=== PATIENT | male | born 1950 ===

== ENCOUNTER 2017-09-20 11:30 | Emergency (ER) | payer MEDICARE, OTHER ==
[~2017-09-20] VITALS: Ht 182.9 cm; Wt 78.0 kg
[2017-09-20 11:07] LABS: PCO2 Arterial 38.7 mmHg (35-45); PO2 Arterial 52.4 mmHg (80-100)
[~2017-09-20 11:30] MED LIST: ? HTN MED; ALBU90OI INH; AMLO10 PO; AMLO5 PO; ASPI325 PO; ASPI325EC PO; ASPI81CH PO; BP MED; BROM2.5 PO; CEPH500 PO; CRUTCH2 USE; CYCL10 PO; DILT180ER PO; DOXY100 PO; HYDPAM25 PO; IBUP600 PO; LIDO5TP TOP; LISI5 PO; LORA1 PO; LORA2 PO; LOVA40; MELO7.5 PO; METO50ER PO; NAPR500 PO; NITR.4SL SL; Neurontin 300300 MG PO; Norco 5-325 Ta1 EACH PO; OXYACE5T PO; Pepcid40 MG PO; Prednisone20 MG PO; THIA100 PO; TIOT18 INH; TRAM50 PO; TRAZ50 PO; Zithromax250 MG PO; Zofran4 MG PO
[2017-09-20 11:54] LABS: BASOPHILS ABSOLUTE AUTO 0.03 K/mm3 (0.00-0.23); BASOPHILS PERCENT AUTO 0 % (0-2); EOSINOPHILS ABSOLUTE AUTO 0.04 K/mm3 (0.00-0.68); EOSINOPHILS PERCENT AUTO 1 % (0-6); Hematocrit 33.4 % (37.0-53.0); Hemoglobin 11.2 g/dL (13.5-17.5); IMMATURE GRAN ABSOLUTE AUTO 0.03 K/mm3 (0.00-0.10); IMMATURE GRAN PERCENT AUTO 0 % (0-1); LYMPHOCYTES ABSOLUTE AUTO 1.43 K/mm3 (0.84-5.20); LYMPHOCYTES PERCENT AUTO 19 % (21-46); MONOCYTES ABSOLUTE AUTO 0.97 K/mm3 (0.16-1.47); MONOCYTES PERCENT AUTO 13 % (4-13); Mean Corpuscular HGB 28.8 pg (26.0-34.0); Mean Corpuscular HGB Conc 33.5 g/dL (31.5-36.5); Mean Corpuscular Volume 86 fL (80-100); Mean Platelet Volume 8.4 fL (9.1-12.4); NEUTROPHILS PERCENT AUTO 67 % (41-73); Platelet Count 271 K/mm3 (150-400); RDW Coefficient Variation 13.9 % (11.7-14.2); RDW Standard Deviation 43.5 fL (35.1-46.3); Red Blood Cell Count 3.89 M/mm3 (4.30-5.90)
[2017-09-20 12:13] LABS: Troponin I <0.015 ng/mL (0.000-0.040)
[2017-09-20 12:16] LABS: Alanine Aminotransfer (ALT/SGP 20 U/L (12-78); Albumin, Blood 3.5 g/dL (3.4-5.0); Albumin/Globulin Ratio 0.9 (0.8-1.8); Alk Phos 121 U/L (50-136); Anion Gap 10 mmol/L (6-16); Aspartate Aminotrans (AST/SGOT 23 U/L (12-37); Bilirubin, Total 0.4 mg/dL (0.1-1.0); Blood Urea Nitrogen 13 mg/dL (8-24); Bun/Creatinine Ratio 16.9 (12.0-20.0); CO2, Blood 34 mmol/L (21-32); Calcium, Blood 8.6 mg/dL (8.5-10.1); Chloride, Blood 86 mmol/L (98-108); Creatinine, Blood 0.77 mg/dL (0.60-1.20); Glomerular Filtration Rate >60 (60-); Glucose, Blood 100 mg/dL (70-99); Potassium, Blood 2.4 mmol/L (3.5-5.5); Sodium, Blood 130 mmol/L (136-145); Total Protein, Blood 7.5 g/dL (6.4-8.2)
[2017-09-20] MEDS ORDERED: Diclofenac Sod100 MG PO (12:51)
== END 2017-09-20 15:51 | disposition home or self-care (01) ==
LOC: ER 11:30
PROVIDERS: Emergency Medicine; Nurse Practitioner Family
DX: R07.9 Chest pain, unspecified (principal); Z88.5 Allergy status to narcotic agent; Z79.899 Other long term (current) drug therapy; Z79.82 Long term (current) use of aspirin; I10 Essential (primary) hypertension; F17.210 Nicotine dependence, cigarettes, uncomplicated
CPT/HCPCS: 36415; 36600; 71045; 71260; 80053; 82803; 83690; 83880; 84484; 85025; 85379; 93005; 93010; 94375; 96361; 96374; 96375; 99284; J1885; J2405; J7030; Q9967

== ENCOUNTER 2019-06-14 15:59 | Emergency (ER) | payer MEDICARE, OTHER ==
[~2019-06-14] VITALS: Ht 185.4 cm; Wt 78.0 kg
[~2019-06-14 15:59] MED LIST changes: +Diclofenac Sod100 MG PO
== END 2019-06-14 18:53 | disposition home or self-care (01) ==
LOC: ER 15:59
DX: S06.9X1A Unspecified intracranial injury with loss of consciousness of 30 minutes or less, initial encounter (principal); S42.002A Fracture of unspecified part of left clavicle, initial encounter for closed fracture; S01.81XA Laceration without foreign body of other part of head, initial encounter; I10 Essential (primary) hypertension; F17.210 Nicotine dependence, cigarettes, uncomplicated; W18.30XA Fall on same level, unspecified, initial encounter
CPT/HCPCS: 12013; 70450; 72125; 73030; 82947; 99284-25; L0160

== ENCOUNTER → 2019-07-29 | Outpatient (CLI) | payer MEDICARE, OTHER ==
[2019-07-29 18:25] LABS: BASOPHILS ABSOLUTE AUTO 0.04 K/mm3 (0.00-0.23); BASOPHILS PERCENT AUTO 1 % (0-2); EOSINOPHILS ABSOLUTE AUTO 0.09 K/mm3 (0.00-0.68); EOSINOPHILS PERCENT AUTO 1 % (0-6); Hemoglobin 15.7 g/dL (13.5-17.5); IMMATURE GRAN ABSOLUTE AUTO 0.02 K/mm3 (0.00-0.10); IMMATURE GRAN PERCENT AUTO 0 % (0-1); LYMPHOCYTES ABSOLUTE AUTO 1.14 K/mm3 (0.84-5.20); LYMPHOCYTES PERCENT AUTO 17 % (21-46); MONOCYTES ABSOLUTE AUTO 0.46 K/mm3 (0.16-1.47); MONOCYTES PERCENT AUTO 7 % (4-13); Mean Corpuscular HGB 29.7 pg (26.0-34.0); Mean Corpuscular HGB Conc 32.7 g/dL (31.5-36.5); Mean Corpuscular Volume 91 fL (80-100); Mean Platelet Volume 10.1 fL (9.1-12.4); NEUTROPHILS ABSOLUTE AUTO 5.02 K/mm3 (1.96-9.15); NEUTROPHILS PERCENT AUTO 74 % (41-73); Platelet Count 331 K/mm3 (150-400); RDW Coefficient Variation 12.5 % (11.7-14.2); RDW Standard Deviation 41.4 fL (35.1-46.3); Red Blood Cell Count 5.29 M/mm3 (4.30-5.90); White Blood Cell Count 6.77 K/mm3 (4.00-11.30)
[2019-07-29 18:47] LABS: Alanine Aminotransfer (ALT/SGP 38 U/L (12-78); Albumin, Blood 3.7 g/dL (3.4-5.0); Albumin/Globulin Ratio 0.8 (0.8-1.8); Alk Phos 180 U/L (50-136); Anion Gap 8 mmol/L (6-16); Aspartate Aminotrans (AST/SGOT 33 U/L (12-37); Bilirubin, Total 0.3 mg/dL (0.1-1.0); Blood Urea Nitrogen 16 mg/dL (8-24); Bun/Creatinine Ratio 23.4 (12.0-20.0); CHOL/HDL RATIO 2.2; CO2, Blood 25 mmol/L (21-32); Calcium, Blood 9.2 mg/dL (8.5-10.1); Chloride, Blood 100 mmol/L (98-108); Cholesterol 189 mg/dL (50-200); Creatinine, Blood 0.69 mg/dL (0.60-1.20); Globulin, Blood 4.6 g/dL (2.2-4.0); Glomerular Filtration Rate >60 (60-); Glucose, Blood 89 mg/dL (70-99); HDL Cholesterol 84 mg/dL (>39); LDL Direct Measurement 70 mg/dL (0-130); LDL/HDL RATIO 1.1; Low Density Lipoprotein Chol 92 mg/dL (0-110); Potassium, Blood 4.2 mmol/L (3.5-5.5); Sodium, Blood 133 mmol/L (136-145); Total Protein, Blood 8.3 g/dL (6.4-8.2); Triglycerides 65 mg/dL (30-160); Very Low Density Lipoprot Chol 13 mg/dL (6-32)
== END ==
LOC: LAB SHORT 16:35 → LAB 16:35
PROVIDERS: Nurse Practitioner Family
DX: J44.9 Chronic obstructive pulmonary disease, unspecified (principal); M54.2 Cervicalgia; E78.5 Hyperlipidemia, unspecified
CPT/HCPCS: 80053; 80061; 83721; 84443; 85025

== ENCOUNTER → 2021-03-30 | Outpatient (CLI) | payer MEDICARE, OTHER ==
[2021-03-30 19:24] LABS: BASOPHILS ABSOLUTE AUTO 0.08 K/mm3 (0.00-0.23); BASOPHILS PERCENT AUTO 1 % (0-2); EOSINOPHILS ABSOLUTE AUTO 0.17 K/mm3 (0.00-0.68); EOSINOPHILS PERCENT AUTO 1 % (0-6); Hematocrit 46.1 % (37.0-53.0); Hemoglobin 15.4 g/dL (13.5-17.5); IMMATURE GRAN ABSOLUTE AUTO 0.05 K/mm3 (0.00-0.10); IMMATURE GRAN PERCENT AUTO 0 % (0-1); LYMPHOCYTES ABSOLUTE AUTO 1.67 K/mm3 (0.84-5.20); LYMPHOCYTES PERCENT AUTO 14 % (21-46); MONOCYTES ABSOLUTE AUTO 0.72 K/mm3 (0.16-1.47); MONOCYTES PERCENT AUTO 6 % (4-13); Mean Corpuscular HGB 30.6 pg (26.0-34.0); Mean Corpuscular HGB Conc 33.4 g/dL (31.5-36.5); Mean Corpuscular Volume 92 fL (80-100); Mean Platelet Volume 8.9 fL (9.1-12.4); NEUTROPHILS ABSOLUTE AUTO 9.16 K/mm3 (1.96-9.15); NEUTROPHILS PERCENT AUTO 77 % (41-73); Platelet Count 366 K/mm3 (150-400); RDW Coefficient Variation 11.9 % (11.7-14.2); RDW Standard Deviation 39.9 fL (35.1-46.3); Red Blood Cell Count 5.03 M/mm3 (4.30-5.90); White Blood Cell Count 11.85 K/mm3 (4.00-11.30)
[2021-03-30 19:57] LABS: Alanine Aminotransfer (ALT/SGP 29 U/L (12-78); Albumin, Blood 3.6 g/dL (3.4-5.0); Albumin/Globulin Ratio 0.9 (0.8-1.8); Alk Phos 188 U/L (50-136); Anion Gap 6 mmol/L (6-16); Aspartate Aminotrans (AST/SGOT 31 U/L (12-37); Bilirubin, Total 0.3 mg/dL (0.1-1.0); Blood Urea Nitrogen 8 mg/dL (8-24); Bun/Creatinine Ratio 10.6 (12.0-20.0); CO2, Blood 27 mmol/L (21-32); Calcium, Blood 8.8 mg/dL (8.5-10.1); Chloride, Blood 101 mmol/L (98-108); Creatinine, Blood 0.76 mg/dL (0.60-1.20); Globulin, Blood 4.1 g/dL (2.2-4.0); Glomerular Filtration Rate >60 (60-); Glucose, Blood 86 mg/dL (70-99); Potassium, Blood 4.4 mmol/L (3.5-5.5); Sodium, Blood 134 mmol/L (136-145); Total Protein, Blood 7.7 g/dL (6.4-8.2)
[2021-03-30 20:58] LABS: Thyroid Stimulating Hormone 2.15 uIU/mL (0.360-4.800)
== END | disposition home or self-care (01) ==
LOC: LAB SHORT 14:21 → LAB 14:21
PROVIDERS: Student in an Organized Health Care Education/Training Program
DX: F10.10 Alcohol abuse, uncomplicated (principal); D51.0 Vitamin B12 deficiency anemia due to intrinsic factor deficiency; G62.9 Polyneuropathy, unspecified; R00.0 Tachycardia, unspecified
CPT/HCPCS: 80053; 82607; 82746; 84425; 84443; 85025

== ENCOUNTER 2024-04-01 22:15 | Inpatient (IN) | payer OTHER ==
[~2024-04-01] VITALS: Ht 177.8 cm; Wt 74.3 kg
[2024-04-01] MEDS ORDERED: NS 1,000 ML IV SCH ×2 (22:20→23:55)
[2024-04-01 22:27] LABS: Hematocrit 37.1 % (37.0-53.0); Hemoglobin 12.6 g/dL (13.5-17.5); Mean Corpuscular HGB 30.1 pg (26.0-34.0); Mean Corpuscular Volume 89 fL (80-100); Mean Platelet Volume 8.6 fL (9.1-12.4); Platelet Count 420 K/mm3 (150-400); RDW Coefficient Variation 12.8 % (11.7-14.2); RDW Standard Deviation 41.7 fL (35.1-46.3); Red Blood Cell Count 4.18 M/mm3 (4.30-5.90); White Blood Cell Count 9.11 K/mm3 (4.00-11.30)
[2024-04-01 22:27] LABS: Base Excess Venous -6.5 mmol/L; Bicarbonate Venous 18.7 mmol/L (24.0-30.0)
[2024-04-01 22:42] LABS: International Normalized Ratio 1.28; Prothrombin Time Results 13.4 Sec (9.7-11.5)
[2024-04-01 22:59] LABS: Alanine Aminotransfer (ALT/SGP 104 U/L (12-78); Albumin, Blood 2.2 g/dL (3.4-5.0); Albumin/Globulin Ratio 0.4 (0.8-1.8); Alk Phos 926 U/L (50-136); Anion Gap 24 mmol/L (3-11); Aspartate Aminotrans (AST/SGOT 162 U/L (12-37); Bilirubin, Total 8.6 mg/dL (0.1-1.0); Blood Urea Nitrogen 30 mg/dL (8-24); Bun/Creatinine Ratio 31.8 (12.0-20.0); CO2, Blood 17 mmol/L (21-32); Calcium, Blood 9.3 mg/dL (8.5-10.1); Chloride, Blood 87 mmol/L (98-108); Creatinine, Blood 0.94 mg/dL (0.60-1.20); Ethanol (Alcohol), Blood, Med <3 mg/dL; Globulin, Blood 5.1 g/dL (2.2-4.0); Glomerular Filtration Rate 85 (60-); Glucose, Blood 141 mg/dL (70-99); Potassium, Blood 4.2 mmol/L (3.5-5.5); Sodium, Blood 124 mmol/L (136-145); Total Protein, Blood 7.3 g/dL (6.4-8.2)
[2024-04-01] MEDS ORDERED: CefTRIAXone Sodium 1,000 MG in NS 50 ML IV ONE (23:00)
[2024-04-01] MEDS ORDERED: Azithromycin 500 MG in NS 250 ML IV ONE (23:00)
[2024-04-01 23:11] LABS: BAND PERCENT MAN 10 % (0-8); BASOPHILS PERCENT MAN 0 % (0-2); EOSINOPHILS ABSOLUTE MAN 0.09 K/mm3 (0.00-0.68); EOSINOPHILS PERCENT MAN 1 % (0-6); LYMPHOCYTES PERCENT MAN 11 % (21-46); METAMYELOCYTE ABSOLUTE MAN 0.09 K/mm3 (0.00-0.00); METAMYELOCYTE PERCENT MAN 1 % (0-0); MONOCYTES PERCENT MAN 0 % (4-13); MYELOCYTE ABSOLUTE MAN 0.09 K/mm3 (0.00-0.00); MYELOCYTE PERCENT MAN 1 % (0-0); NEUTROPHILS ABSOLUTE MAN 7.83 K/mm3 (1.96-9.15); SEG NEUTROPHILS PERCENT MAN 76 % (41-73); TOTAL CELLS COUNTED 100
[2024-04-01 23:17] LABS: Influenza A, PCR NEGATIVE (NEGATIVE); Influenza B, PCR NEGATIVE (NEGATIVE); Resp Syncytial Virus, PCR NEGATIVE (NEGATIVE)
[2024-04-01] MEDS ORDERED: LORazepam 2 MG/ML 1ML Injection IV ONE ×2 (23:30→23:55)
[2024-04-01 23:43] LABS: SARS-Cov-2 (COVID-19) PCR, MMC POSITIVE (NEGATIVE)
[2024-04-02] VITALS (53 sets, daily range): BP systolic 82–162; BP diastolic 55–148
[2024-04-02] MEDS ORDERED: FentaNYL Citrate 50 MCG/ML 2 ML Injection IV ONE (00:35)
[2024-04-02] MEDS ORDERED: LORazepam 2 MG/ML 1ML Injection IV ONE ×2 (01:05→05:55)
[2024-04-02 05:33] LABS: Source, Urine Clean Catch
[2024-04-02 05:38] LABS: Appearance, Urine Hazy (Clear); Blood, Urine 4+ (Neg); Color, Urine Yellow (P-Yellow); Glucose Qualitative, Urine Neg (Neg); Ketones, Urine Neg (Neg); Leukocyte Esterase, Urine 1+ (Neg); Nitrite, Urine Pos (Neg); Protein, Urine 2+ (Neg); Urobilinogen, Urine 1+ (Normal)
[2024-04-02 05:46] LABS: Bilirubin, Urine 2+ (Neg)
[2024-04-02 05:47] LABS: Bacteria Many /hpf; Squamous Epithelial Cells Few /hpf (Few)
[2024-04-02 05:48] LABS: Amorphous Light (0-Heavy)
[2024-04-02 05:52] LABS: U Amphetamine Screen Not Detected; U Barbituate Screen Not Detected; U Benzodiazapine Screen DETECTED; U Buprenorphine Screen Not Detected; U Cannabinoids Screen Not Detected; U Cocaine Screen Not Detected; U Methadone Screen Not Detected; U Methamphetamine Screen Not Detected; U Opiates Screen Not Detected; U Oxycodone Screen Not Detected; U Phencyclidine Screen Not Detected
[2024-04-02] MEDS ORDERED: LORazepam 2 MG/ML 1ML Injection IV PRN ×2 (06:05)
[2024-04-02] MEDS ORDERED: ChlordiazePOXIDE 25 MG Cap PO PRN (06:05)
[2024-04-02] MEDS ORDERED: NS 1,000 ML IV ONE (06:15)
[2024-04-02] MEDS ORDERED: Piperacillin/Tazobactam Sod 4.5 GM in NS 100 ML IV ONE (06:20)
[2024-04-02 08:24] LABS: Albumin, Blood 1.8 g/dL (3.4-5.0); Albumin/Globulin Ratio 0.4 (0.8-1.8); Bilirubin, Total 6.8 mg/dL (0.1-1.0); Bun/Creatinine Ratio 29.6 (12.0-20.0); Calcium, Blood 8.2 mg/dL (8.5-10.1); Creatinine, Blood 1.15 mg/dL (0.60-1.20); Globulin, Blood 4.1 g/dL (2.2-4.0); Potassium, Blood 3.8 mmol/L (3.5-5.5); Total Protein, Blood 5.9 g/dL (6.4-8.2)
[2024-04-02] MEDS ORDERED: NS 250 ML IV PRN (08:50)
[2024-04-02] MEDS ORDERED: Folic Acid 1 MG in NS 50 ML IV SCH (09:00)
[2024-04-02] MEDS ORDERED: Thiamine HCl 100 MG in NS 50 ML IV SCH (09:00)
[2024-04-02] MEDS ORDERED: Lactobacil 2-S.Thermo-Bifido 1 1 Cap PO SCH (09:00)
[2024-04-02] MEDS ORDERED: Remdesivir (EUA) 200 MG in NS 250 ML IV ONE (10:20)
[2024-04-02] MEDS ORDERED: Ipratropium/Albuterol SulF 2.5-0.5MG/3 ML Amp INH SCH (10:25)
[2024-04-02 12:49] LABS: Albumin, Blood 1.7 g/dL (3.4-5.0); Albumin/Globulin Ratio 0.4 (0.8-1.8); Bilirubin, Total 5.9 mg/dL (0.1-1.0); Bun/Creatinine Ratio 28.6 (12.0-20.0); Creatinine, Blood 1.12 mg/dL (0.60-1.20); Globulin, Blood 4.1 g/dL (2.2-4.0); Potassium, Blood 3.6 mmol/L (3.5-5.5); Total Protein, Blood 5.8 g/dL (6.4-8.2)
[2024-04-02] MEDS ORDERED: Piperacillin/Tazobactam Sod 4.5 GM in NS 100 ML IV SCH ×2 (14:00→16:00)
[2024-04-02] MEDS ORDERED: CefTRIAXone Sodium 1,000 MG in NS 100 ML IV SCH (15:00)
[2024-04-02] MEDS ORDERED: Thiamine HCl 250 MG in NS 100 ML IV SCH (16:00)
[2024-04-02 16:58] LABS: Albumin, Blood 1.7 g/dL (3.4-5.0); Albumin/Globulin Ratio 0.4 (0.8-1.8); Bilirubin, Total 5.4 mg/dL (0.1-1.0); Bun/Creatinine Ratio 31.1 (12.0-20.0); Calcium, Blood 7.8 mg/dL (8.5-10.1); Creatinine, Blood 1.06 mg/dL (0.60-1.20); Globulin, Blood 4.1 g/dL (2.2-4.0); Potassium, Blood 3.2 mmol/L (3.5-5.5); Total Protein, Blood 5.8 g/dL (6.4-8.2)
[2024-04-02] MEDS ORDERED: Potassium Chl 20MEQ/Water100ML 100 ML IV SCH (17:20)
--- NOTE | 2024-04-02 18:26 | NUR ---
DAY SHIFT SUMMARY PT ARRIVED FROM THE ER W CIWA IN THE 30'S, PT WAS RIPPING HIS MONITOR CORDS OFF AND PEEING IN THE BED. PT GIVEN IV ATIVAN AND PROVIDER CONTACTED AND PRECEDEX GTT ORDERED. PT ON PRECEDEX GTT AT 0.2-0.3 MCG/KG/HR THIS SHIFT WELL RECIEVING IV ATIVAN FOR ELEVATED CIWA. PT ALSO PLACED IN BUE SOFT WRSIT RESTRAINTS TO KEEP HIM FROM PULLING OUT HIS IV'S AND MONITOR CORDS. PT'S MONITOR SHOWING AFIB 110'S-130'S UNTIL APPROX 1600 WHEN HE CONVERTED TO SR 70'S. PT'S BP WNL AND STABLE. PT'S SPO2 >94% ON RM AIR. PT AFEBRILE. PT HAD 2 LARGE INCONTINENT VOIDS IN THE BED BEFORE A CONDOM CATHETER WAS PLACED AND HE VOIDED 400ML INTO THE CONDOM CATHETER. PT'S AFTERNOON LABS SHOWING K OF 3.2 SO PROVIDER CONTACTED WHO ORDERED IV REPLACEMENT. ORAL CARE DONE X2 THIS SHIFT THOUGH PT THRASHES IN BED FIGHTING HIS CARE. PT CURRENTLY RESTING COMFORTABLY W PRECEDEX GTT INFUSING AT 0.3 MCG/KG/HR. WILL REPORT TO ONCOMING RN.
--- NOTE | 2024-04-02 19:00 | NUR ---
ASSUMED CARE ASSUMED CARE OF PATIENT. RESTING QUIETLY WHEN UNDISTURBED. PRECEDEX INFUSING AT 0.3MCG/KG/HR. KCL INFUSING PER ORDER. NS AT 100MLS/HR PER ORDER. MONITOR SHOWS NSR WITH 1ST DEGREE AV BLOCK, RATE 60s. BP STABLE. RA SATS. RESPIRATIONS EVEN AND UNLABORED. CONDOM CATH IN PLACE, DRAINING ORANGISH-YELLOW URINE. SEE SHIFT ASSESSMENT FOR FULL ASSESSMENT.
[2024-04-02] MEDS ORDERED: Heparin Sodium,Porcine 5,000 UNIT/0.5 ML SDV SC SCH (20:00)
[2024-04-03] VITALS (81 sets, daily range): BP systolic 81–140; BP diastolic 51–116
[2024-04-03 03:26] LABS: BASOPHILS ABSOLUTE AUTO 0.03 K/mm3 (0.00-0.23); BASOPHILS PERCENT AUTO 0 % (0-2); EOSINOPHILS PERCENT AUTO 0 % (0-6); Hematocrit 28.1 % (37.0-53.0); Hemoglobin 9.6 g/dL (13.5-17.5); IMMATURE GRAN ABSOLUTE AUTO 0.39 K/mm3 (0.00-0.10); IMMATURE GRAN PERCENT AUTO 2 % (0-1); LYMPHOCYTES ABSOLUTE AUTO 0.55 K/mm3 (0.84-5.20); LYMPHOCYTES PERCENT AUTO 2 % (21-46); MONOCYTES ABSOLUTE AUTO 0.72 K/mm3 (0.16-1.47); MONOCYTES PERCENT AUTO 3 % (4-13); Mean Corpuscular HGB 30.5 pg (26.0-34.0); Mean Corpuscular HGB Conc 34.2 g/dL (31.5-36.5); Mean Corpuscular Volume 89 fL (80-100); Mean Platelet Volume 9.1 fL (9.1-12.4); NEUTROPHILS ABSOLUTE AUTO 22.18 K/mm3 (1.96-9.15); NEUTROPHILS PERCENT AUTO 93 % (41-73); Platelet Count 239 K/mm3 (150-400); RDW Coefficient Variation 13.2 % (11.7-14.2); RDW Standard Deviation 42.6 fL (35.1-46.3); Red Blood Cell Count 3.15 M/mm3 (4.30-5.90); White Blood Cell Count 23.87 K/mm3 (4.00-11.30)
[2024-04-03 03:44] LABS: Albumin, Blood 1.6 g/dL (3.4-5.0); Albumin/Globulin Ratio 0.4 (0.8-1.8); Bilirubin, Total 4.8 mg/dL (0.1-1.0); Bun/Creatinine Ratio 42.7 (12.0-20.0); Calcium, Blood 7.9 mg/dL (8.5-10.1); Creatinine, Blood 0.94 mg/dL (0.60-1.20); Globulin, Blood 4.1 g/dL (2.2-4.0); Magnesium, Blood 2.2 mg/dL (1.6-2.4); Potassium, Blood 3.7 mmol/L (3.5-5.5); Total Protein, Blood 5.7 g/dL (6.4-8.2)
[2024-04-03 03:45] LABS: International Normalized Ratio 1.37; Prothrombin Time Results 14.3 Sec (9.7-11.5)
--- NOTE | 2024-04-03 05:29 | NUR ---
SHIFT SUMMARY NO ACUTE CHANGES DURING NOC. SEDATED WITH PRECEDEX BETWEEN 0.3-0.4MCG/KG/HR. NOW INFUSING AT 0.4MCG/KG/HR. MEDICATED WITH ATIVAN 2MG X 4 DOSES FOR CIWA SCORES 20-25. REPOSITIONS SELF FREQUENTLY IN BED. MOVES ALL EXTREMITIES. OCCASIONALLY FOLLOWS SIMPLE COMMANDS, BUT DOESN'T AT OTHER TIMES. PT IS NOT REDIRECTABLE. SPEECH IS MUMBLED. BILATERAL SOFT WRIST RESTRAINTS IN PLACE TO PROTECT LINES. PT DOES PULL AGAINST RESTRAINTS AND PULL ON LINES. MONITOR SHOWS SB-SR WITH 1ST DEGREE AV BLOCK, RATE 50S-60S. BP STABLE WITH MAPS >65. AFEBRILE. CONDOM CATHETER IN PLACE- DARK ORANGISH-YELLOW URINE. NPO D/T SEDATION/ASPIRATION RISK. REMAINS IN ISOLATION FOR COVID-19. WILL REPORT TO ONCOMING RN WHEN AVAILABLE.
[2024-04-03] MEDS ORDERED: Lactated Ringer's 1,000 ML IV SCH ×2 (07:00→16:45)
--- NOTE | 2024-04-03 07:00 | NUR ---
ASSUMPTION OF CARE PT RECEIVING PRECEDEX 0.4MCG/KG/HR. HE RESPONDS TO HIS NAME BUT IS UNABLE TO HAVE A CONVERSATION. HE REPEATEDLY STS "NO" AND "I'M COLD". WARM BLANKETS APPLIED. HR 60S-70S, BP STABLE. CONDOM CATH IN PLACE. PT REMAINS IN BILAT SOFT WRIST RESTRAINTS. BED IN LOW POSITION.
[2024-04-03] MEDS ORDERED: Ipratropium/Albuterol SulF 2.5-0.5MG/3 ML Amp INH PRN (11:15)
[2024-04-03] MEDS ORDERED: Remdesivir (EUA) 100 MG in NS 250 ML IV SCH (12:00)
[2024-04-03 14:06] LABS: Hematocrit 27.9 % (37.0-53.0); Hemoglobin 9.7 g/dL (13.5-17.5); Mean Corpuscular HGB Conc 34.8 g/dL (31.5-36.5); Mean Corpuscular Volume 89 fL (80-100); Mean Platelet Volume 9.8 fL (9.1-12.4); Platelet Count 239 K/mm3 (150-400); RDW Coefficient Variation 13.1 % (11.7-14.2); RDW Standard Deviation 42.6 fL (35.1-46.3); Red Blood Cell Count 3.13 M/mm3 (4.30-5.90); White Blood Cell Count 22.98 K/mm3 (4.00-11.30)
[2024-04-03 14:30] LABS: BAND PERCENT MAN 2 % (0-8); BASOPHILS PERCENT MAN 0 % (0-2); EOSINOPHILS ABSOLUTE MAN 0.22 K/mm3 (0.00-0.68); EOSINOPHILS PERCENT MAN 1 % (0-6); LYMPHOCYTES ABSOLUTE MAN 0.68 K/mm3 (0.84-5.20); LYMPHOCYTES PERCENT MAN 3 % (21-46); MONOCYTES ABSOLUTE MAN 0.91 K/mm3 (0.16-1.47); MONOCYTES PERCENT MAN 4 % (4-13); NEUTROPHILS ABSOLUTE MAN 21.14 K/mm3 (1.96-9.15); SEG NEUTROPHILS PERCENT MAN 90 % (41-73); TOTAL CELLS COUNTED 100
--- NOTE | 2024-04-03 18:14 | NUR ---
SHIFT SUMMARY PT RECEIVING PRECEDEX 1.0MCG/KG/HR AND LR 125ML/HR. PT RESPONDS TO VERBAL STIMULI BUT UNABLE TO FOLLOW CONVERSATION. PT MUMBLES TO SELF AND SAYS SHORT PHRASES SUCH "NO" AND "I'M COLD". UNABLE TO FOLLOW SIMPLE COMMANDS SUCH SQUEEZING HANDS. CIWA 23-25. HE REMAINS ON RA WITH SPO2 >90%. SINUS ON MONITOR WITH RATE IN 50S-60S. MAP >65. MALE PUREWICK IN PLACE. BED IN LOW POSITION.
--- NOTE | 2024-04-03 19:14 | NUR ---
ASSUMED CARE OF PATIENT AT 1900. REPORT RECEIVED FROM KAREEM GARZA. PT RESTING IN BED. CONTINOUS CARDIAC MONITORING IN PLACE SHOWING SINUS ROGER WITH HR OF 53. BP 104/70. ON RA WITH O2 SATURATION OF 99%. PRECEDEX INFUSING AT 1.0 MCG/KG/HR, LR INFUSING AT 150 mL/HR. NO ACUTE NEEDS IDENTIFIED AT THIS TIME. SEE SHIFT ASSESSMENT FOR FULL DETAILS.
[2024-04-04] VITALS (81 sets, daily range): BP systolic 76–153; BP diastolic 53–107
[2024-04-04 03:43] LABS: BASOPHILS ABSOLUTE AUTO 0.02 K/mm3 (0.00-0.23); BASOPHILS PERCENT AUTO 0 % (0-2); EOSINOPHILS ABSOLUTE AUTO 0.02 K/mm3 (0.00-0.68); EOSINOPHILS PERCENT AUTO 0 % (0-6); Hematocrit 28.7 % (37.0-53.0); Hemoglobin 9.8 g/dL (13.5-17.5); IMMATURE GRAN ABSOLUTE AUTO 0.13 K/mm3 (0.00-0.10); IMMATURE GRAN PERCENT AUTO 1 % (0-1); LYMPHOCYTES ABSOLUTE AUTO 0.82 K/mm3 (0.84-5.20); LYMPHOCYTES PERCENT AUTO 6 % (21-46); MONOCYTES ABSOLUTE AUTO 0.64 K/mm3 (0.16-1.47); MONOCYTES PERCENT AUTO 5 % (4-13); Mean Corpuscular HGB 30.9 pg (26.0-34.0); Mean Corpuscular HGB Conc 34.1 g/dL (31.5-36.5); Mean Corpuscular Volume 91 fL (80-100); Mean Platelet Volume 10.6 fL (9.1-12.4); NEUTROPHILS ABSOLUTE AUTO 11.29 K/mm3 (1.96-9.15); NEUTROPHILS PERCENT AUTO 87 % (41-73); Platelet Count 232 K/mm3 (150-400); RDW Coefficient Variation 13.3 % (11.7-14.2); RDW Standard Deviation 43.8 fL (35.1-46.3); Red Blood Cell Count 3.17 M/mm3 (4.30-5.90); White Blood Cell Count 12.92 K/mm3 (4.00-11.30)
[2024-04-04 05:17] LABS: Albumin, Blood 1.4 g/dL (3.4-5.0); Albumin/Globulin Ratio 0.4 (0.8-1.8); Bilirubin, Direct 2.5 mg/dL (0.0-0.3); Bilirubin, Total 2.9 mg/dL (0.1-1.0); Calcium, Blood 8.2 mg/dL (8.5-10.1); Creatinine, Blood 0.81 mg/dL (0.60-1.20); Globulin, Blood 3.9 g/dL (2.2-4.0); Total Protein, Blood 5.3 g/dL (6.4-8.2)
--- NOTE | 2024-04-04 06:11 | NUR ---
PATIENT OVERNIGHT HAD AN UNEVENTFUL SHIFT. PATIENT IS STILL A&OX1 REALLY ONLY RESPONDING TO NAME. PATIENT ON DEX GTT AT 0.6. ONE DOSE OF ATIVAN 2MG GIVEN FOR A CIWA OF 13. PATIENT HAS BILAT WRIST RESTRAINTS DUE TO PATIENT PULLING AT LINES. CARDIAC PATIENT IS SINUS ROGER IN THE 50S. BP HAVE BEEN ON THE SOFT SIDE BUT HAS MAINTIANED A MAP OF 65. PATIENT ON RA. NO BM OVERNIGHT. THIS RN DID BLADDER SCAN PATIENT TO LACK OF VOID FOR 6 HOURS. PATIENT HAD 650 ML ON SCAN, STRAIGHT CATH PERFORMED AND 625 ML OUT. THIS WAS DONE AT 0051. MALE PURWICK STILL IN PLACE. PATIENT IS ON THE WAITLIST TO BE TRANSFER TO [facility] FOR AN ERCP.
[2024-04-04 09:21] LABS: Source, Urine Foley catheter
[2024-04-04 09:57] LABS: Bicarbonate Venous 19.4 mmol/L (24.0-30.0); PCO2 Venous 32.7 mmHg (38-42); pH Blood Venous 7.36 (7.34-7.37)
[2024-04-04 10:44] LABS: Appearance, Urine Hazy (Clear); Bacteria Rare /hpf; Bilirubin, Urine Neg (Neg); Blood, Urine 2+ (Neg); Color, Urine Yellow (P-Yellow); Glucose Qualitative, Urine Neg (Neg); Ketones, Urine Neg (Neg); Leukocyte Esterase, Urine 1+ (Neg); Nitrite, Urine Neg (Neg); Protein, Urine 1+ (Neg); Specific Gravity, Urine 1.015 (1.003-1.022); Squamous Epithelial Cells Rare /hpf (Few); Urobilinogen, Urine NORM (Normal)
[2024-04-04] MEDS ORDERED: TPN Consult Notification XX ONE (11:10)
[2024-04-04] MEDS ORDERED: Piperacillin/Tazobactam Sod 4.5 GM in NS 100 ML IV SCH (14:00)
[2024-04-04] MEDS ORDERED: Parenteral Electolytes 40 ML,Potassium Phosphate Dibasic 30 MM,Multivitamins 10 ML,Thia... IV SCH (17:00)
--- NOTE | 2024-04-04 17:33 | NUR ---
SHIFT SUMMARY NO ACUTE CHANGES THIS SHIFT. PT REMAINS SEDATED WITH PRECEDEX AT 0.6 MCG/KG/HR. PT WITH EPISODES OF RESTLESSNESS/AGITATION, BUT DOES NOT RESPOND TO VERBAL REDIRECTION. PT ATTEMPTS TO YELL OUT WORDS, BUT SPEECH IS INCOMPREHENSABLE. PT CONTINUES TO ATTEMPT TO PULL AT LINES/CORDS. PT NPO THIS SHIFT DUE TO MENTATION. PPN STARTED THIS EVENING PER EMAR. SCHOFIELD TEMP PROBE IN PLACE WITH DARK GABRIEL URINE OUTPUT NOTED. VITAL SIGNS STABLE. NO FAMILY AT BEDSIDE THIS SHIFT. PT AWAITING BED ASSIGNMENT FOR TRANSFER TO [facility]. WILL CONTINUE TO MONITOR AND REPORT OFF TO ONCOMING RN.
[2024-04-05] VITALS (92 sets, daily range): BP systolic 71–196; BP diastolic 48–121
--- NOTE | 2024-04-05 02:21 | NUR ---
ASSUMED CARE ASSUMED CARE AT 1900. PT A/O TO SELF ONLY. MUMBLES AND YELLS OUT. ABLE TO STATES SOME WORDS SUCH "NO", "GET AWAY" AND "NURSE". DOES NOT FOLLOW DIRECTIONS. PULLS AGAINST RESTRAINTS AND ANY LINES IN REACH. MOVES SELF SIDEWAYS IN BED AND KICKS LEGS OVER RAILING. UNABLE TO REORIENT. THRASHES HEAD WITH ORAL CARE AND WHEN ATTEMPTING TO ASSESS PUPILS. NO GAG WITH ORAL SUCTIONING. ABLE TO COUGH UP THICK YELLOW SECRETIONS. VSS. HR 60-90'S. ON RA. PRECEDEX GTT INFUSING. SEE FLOWSHEET FOR TITRATIONS. SCHOFIELD PATENT AND DRAINING TO GRAVITY.
[2024-04-05 04:34] LABS: BASOPHILS ABSOLUTE AUTO 0.04 K/mm3 (0.00-0.23); BASOPHILS PERCENT AUTO 0 % (0-2); EOSINOPHILS ABSOLUTE AUTO 0.05 K/mm3 (0.00-0.68); EOSINOPHILS PERCENT AUTO 0 % (0-6); Hemoglobin 10.3 g/dL (13.5-17.5); IMMATURE GRAN ABSOLUTE AUTO 0.44 K/mm3 (0.00-0.10); IMMATURE GRAN PERCENT AUTO 2 % (0-1); LYMPHOCYTES ABSOLUTE AUTO 1.36 K/mm3 (0.84-5.20); LYMPHOCYTES PERCENT AUTO 7 % (21-46); MONOCYTES PERCENT AUTO 5 % (4-13); Mean Corpuscular HGB 30.7 pg (26.0-34.0); Mean Corpuscular HGB Conc 34.3 g/dL (31.5-36.5); Mean Corpuscular Volume 90 fL (80-100); Mean Platelet Volume 9.8 fL (9.1-12.4); NEUTROPHILS ABSOLUTE AUTO 16.11 K/mm3 (1.96-9.15); NEUTROPHILS PERCENT AUTO 85 % (41-73); Platelet Count 379 K/mm3 (150-400); RDW Coefficient Variation 13.3 % (11.7-14.2); RDW Standard Deviation 43.5 fL (35.1-46.3); Red Blood Cell Count 3.35 M/mm3 (4.30-5.90)
[2024-04-05 04:41] LABS: pH Blood Arterial 7.37 (7.35-7.45)
[2024-04-05 04:42] LABS: PCO2 Arterial 35.9 mmHg (35-45); PO2 Arterial 66.5 mmHg (80-100)
[2024-04-05 04:50] LABS: Alanine Aminotransfer (ALT/SGP 85 U/L (12-78); Albumin, Blood 1.6 g/dL (3.4-5.0); Albumin/Globulin Ratio 0.4 (0.8-1.8); Alk Phos 784 U/L (50-136); Anion Gap 13 mmol/L (3-11); Aspartate Aminotrans (AST/SGOT 109 U/L (12-37); Bilirubin, Total 2.8 mg/dL (0.1-1.0); Blood Urea Nitrogen 37 mg/dL (8-24); Bun/Creatinine Ratio 42.6 (12.0-20.0); CO2, Blood 19 mmol/L (21-32); Calcium, Blood 7.9 mg/dL (8.5-10.1); Chloride, Blood 114 mmol/L (98-108); Creatinine, Blood 0.87 mg/dL (0.60-1.20); Globulin, Blood 4.3 g/dL (2.2-4.0); Glomerular Filtration Rate 91 (60-); Glucose, Blood 105 mg/dL (70-99); Magnesium, Blood 2.1 mg/dL (1.6-2.4); Phosphorus, Blood 3.8 mg/dL (2.5-4.9); Potassium, Blood 4.2 mmol/L (3.5-5.5); Sodium, Blood 142 mmol/L (136-145); Total Protein, Blood 5.9 g/dL (6.4-8.2); Triglycerides 150 mg/dL (30-160)
[2024-04-05] MEDS ORDERED: PHENobarbital Sodium 65MG / ML 1ML Vial IV ONE (05:00)
[2024-04-05] MEDS ORDERED: propofoL 100 ML IV SCH (06:40)
[2024-04-05 07:04] LABS: Hematocrit 31.3 % (37.0-53.0); Hemoglobin 10.4 g/dL (13.5-17.5); Mean Corpuscular HGB 30.6 pg (26.0-34.0); Mean Corpuscular HGB Conc 33.2 g/dL (31.5-36.5); Mean Corpuscular Volume 92 fL (80-100); Mean Platelet Volume 9.7 fL (9.1-12.4); Platelet Count 397 K/mm3 (150-400); RDW Coefficient Variation 13.5 % (11.7-14.2)
--- NOTE | 2024-04-05 07:14 | NUR ---
SHIFT SUMMARY/CODE BLUE PT INCREASINGLY AGITATED T/O NIGHT. PRECEDEX GTT INFUSING, SEE FLOWSHEET FOR TITRATIONS. ATIVAN GIVEN PER SEP WITH SHORT EFFECT. DR DORADO CALLED APPROX 0230 REGARDING PT AGITATION. ORDER TO GIVE MORE ATIVAN AND CALL BACK IF PT NEEDED MORE ADDITIONAL MEDICATION. PT CALM FOR APPROX 45 MINS AND THEN CONTINUED TO BE AGITATED, RR 30'S AND TACHY AT TIMES. RT CALLED AND ABG DRAWN. CALL TO PROVIDER AND ORDER FOR PHENOBARBITAL. MEDICATION HELD PT BEGAN TO CALM DOWN. SPO2 GREATER THEN 92% WHEN PT CALM. APPROX 0600 PT HR INCREASED TO 130'S, RR 30-40'S, AND GUPPY BREATHING. DIFFICULTY GETTING SPO2 WITH POOR WAVEFORM. DR DORADO CALLED TO ASSESS PT. PROVIDER AT BEDSIDE AND ORDER TO GIVE 2MG OF ATIVAN. PT GIVEN ATIVAN. THIS RN AT BEDSIDE WHEN PT BEGAN TO TURN MOFFETT, WITH GAZE TO THE RIGHT, AND AGONAL BREATHING. 0620 CODE CALLED AND PT IN PEA. CHEST COMPRESSIONS STARTED AND RT AT BEDSIDE BAGGING PT. PT INTUBATED AT 0622. SEE RT NOTES. TWO DOSES OF EPI GIVEN. SEE CODE SHEET FOR MORE INFORMATION. ROSC AT 0625. AMIO BOLUS GIVEN AND GTT STARTED PER ORDER. PROPOFOL STARTED AND THEN STOPPED WITH LOW BP. REPORT GIVEN TO DAY RN.
[2024-04-05] MEDS ORDERED: Vancomycin HCL 1,750 MG in NS 500 ML IV ONE (07:25)
[2024-04-05 07:26] LABS: Albumin, Blood 1.6 g/dL (3.4-5.0); Albumin/Globulin Ratio 0.3 (0.8-1.8); Bilirubin, Total 2.9 mg/dL (0.1-1.0); Calcium, Blood 8.3 mg/dL (8.5-10.1); Creatinine, Blood 0.95 mg/dL (0.60-1.20); Globulin, Blood 4.6 g/dL (2.2-4.0); Magnesium, Blood 2.3 mg/dL (1.6-2.4); Phosphorus, Blood 4.9 mg/dL (2.5-4.9); Potassium, Blood 4.5 mmol/L (3.5-5.5); Total Protein, Blood 6.2 g/dL (6.4-8.2)
[2024-04-05] MEDS ORDERED: FentaNYL Citrate 50 MCG/ML 2 ML Injection IV PRN (07:35)
[2024-04-05 07:43] LABS: BAND PERCENT MAN 3 % (0-8); BASOPHILS PERCENT MAN 0 % (0-2); EOSINOPHILS ABSOLUTE MAN 0.21 K/mm3 (0.00-0.68); EOSINOPHILS PERCENT MAN 1 % (0-6); LYMPHOCYTES ABSOLUTE MAN 2.95 K/mm3 (0.84-5.20); LYMPHOCYTES PERCENT MAN 14 % (21-46); METAMYELOCYTE ABSOLUTE MAN 0.63 K/mm3 (0.00-0.00); METAMYELOCYTE PERCENT MAN 3 % (0-0); MONOCYTES ABSOLUTE MAN 0.21 K/mm3 (0.16-1.47); MONOCYTES PERCENT MAN 1 % (4-13); MYELOCYTE ABSOLUTE MAN 0.21 K/mm3 (0.00-0.00); MYELOCYTE PERCENT MAN 1 % (0-0); NEUTROPHILS ABSOLUTE MAN 16.88 K/mm3 (1.96-9.15); SEG NEUTROPHILS PERCENT MAN 77 % (41-73); TOTAL CELLS COUNTED 100
[2024-04-05 07:46] LABS: PCO2 Arterial 39.9 mmHg (35-45); PO2 Arterial 45.6 mmHg (80-100); pH Blood Arterial 7.31 (7.35-7.45)
--- NOTE | 2024-04-05 08:20 | NUR ---
ASSUMED CARE BEDSIDE REPORT RECIEVED. PT INTUBATED. PT RESTLESS/AGITATED UPON ENTERING ROOM. PROPOFOL ON S/B DUE TO HYPOTENSION. DR WOODRUFF NOTIFIED. LEVOPHED STARTED TO DEBBY PG AND PT MED WITH FENTANYL PER EMAR. PT RESTING CALMLY FOR SHORT PERIODS, BUT OTHERWISE REMAINS RESTLESS AND THRASHES HEAD SIDE TO SIDE. DR SCHMITZ AND EKATERINA IN TO SEE PT. NO ORDERS RECIEVED. WILL CONTINUE TO MONITOR.
[2024-04-05] MEDS ORDERED: TPN Consult Notification XX ONE (14:05)
[2024-04-05] MEDS ORDERED: Hydrogen Peroxide 1.5 % Solution MT SCH (16:00)
[2024-04-05] MEDS ORDERED: Furosemide 10 MG / ML 2ML Vial IV ONE (17:00)
[2024-04-05] MEDS ORDERED: Parenteral Electolytes 40 ML,Potassium Phosphate Dibasic 30 MM,Multivitamins 10 ML,Thia... IV SCH (17:00)
--- NOTE | 2024-04-05 17:25 | NUR ---
SHIFT SUMMARY PT REMAINS INTUBATED AND SEDATED. PT WITH INTERMITENT EPISODES OF AGITATION AND RESTLESSNESS. PT MED WITH FENTANYL AND ATIVAN PER EMAR. PT SEDATED WITH PROPOFOL AT 30 MCG/KG/MIN AT THIS TIME AND IS RESTING QUIETLY. VENT SETTINGS TITRATED TO AC 18, TV 450, PEEP 5, FIO2 30% THIS SHIFT. PT WITH THICK, DOVE/BLOODY ETT SECRETIONS WITH SUCTION. PT DOES NOT WAKE TO VERBAL OR NOXIOUS STIMULI. PT DOES NOT FOLLOW COMMANDS. OGT IN PLACE TO LIS WITH SMALL AMOUNT OF BILE OUTPUT NOTED. PICC PLACED TO DEBBY THIS SHIFT. PPN INFUSING AT 105 ML/HR, NS TKO, LEVOPHED AT 4 MCG/MIN, AND AMIODARONE AT 1 MG/MIN. PG TO ABDULAZIZ C/D/I. SCHOFIELD TEMP PROBE REMAINS IN PLACE WITH SMALL AMOUNT OF DARK YELLOW/GABRIEL URINE OUTPUT NOTED. VITAL SIGNS HAVE REMAINED STABLE. SBW RESTRAINTS REMAIN IN PLACE. PT TAKEN TO CT SCAN THIS AFTERNOON WITHOUT COMPLICATION. PT DAUGHTER BIGG CALLED AND UPDATED THIS AFTERNOON. CONTACT PHONE NUMBER [phone], PLACED IN CHART. WILL CONTINUE TO MONITOR AND REPORT OFF TO ONCOMING RN.
[2024-04-05] MEDS ORDERED: Pantoprazole Sodium 40 MG Injection IV SCH (19:00)
[2024-04-05] MEDS ORDERED: Vancomycin HCL 750 MG in NS 250 ML IV SCH (20:00)
[2024-04-05] MEDS ORDERED: Cetylpyridinium Chloride 1 EA MISC MT SCH (20:00)
--- NOTE | 2024-04-05 22:11 | NUR ---
ASSUMED CARE: REPORT RECIEVED FROM LLUVIA VALDES. PT LAYING IN BED INTUBATED, PT APPEARS CALM. VENT SETTINGS ACVC 18/450/5/30 RR 18-24, SPO2 >95%. OG TUBE TO INTERMITTENT SUCTION DRAINING A SMALL AMOUNT OF BROWN THIN LIQUID. LEVOPHED TITRATED TO STAND BY, MAP>65. CALLED REGARGING AMIDODERONE GTT AND TITRATED DOWN PER ORDER PROTOCOL. PROPOFOL GTT INFUSING, SEE FLOW SHEET FOR TITRATIONS. HEART RYTHM SB/SR 50s-60s. PT TOLERATING VENT WELL.
[2024-04-06] VITALS (95 sets, daily range): BP systolic 90–165; BP diastolic 52–109
[2024-04-06 04:14] LABS: BASOPHILS ABSOLUTE AUTO 0.04 K/mm3 (0.00-0.23); BASOPHILS PERCENT AUTO 0 % (0-2); EOSINOPHILS ABSOLUTE AUTO 0.13 K/mm3 (0.00-0.68); EOSINOPHILS PERCENT AUTO 1 % (0-6); Hemoglobin 9.8 g/dL (13.5-17.5); IMMATURE GRAN ABSOLUTE AUTO 0.59 K/mm3 (0.00-0.10); IMMATURE GRAN PERCENT AUTO 5 % (0-1); LYMPHOCYTES ABSOLUTE AUTO 1.34 K/mm3 (0.84-5.20); LYMPHOCYTES PERCENT AUTO 11 % (21-46); MONOCYTES ABSOLUTE AUTO 0.68 K/mm3 (0.16-1.47); MONOCYTES PERCENT AUTO 6 % (4-13); Mean Corpuscular HGB 30.3 pg (26.0-34.0); Mean Corpuscular HGB Conc 33.8 g/dL (31.5-36.5); Mean Corpuscular Volume 90 fL (80-100); Mean Platelet Volume 9.2 fL (9.1-12.4); NEUTROPHILS ABSOLUTE AUTO 9.63 K/mm3 (1.96-9.15); NEUTROPHILS PERCENT AUTO 78 % (41-73); Platelet Count 296 K/mm3 (150-400); RDW Coefficient Variation 13.4 % (11.7-14.2); RDW Standard Deviation 44.2 fL (35.1-46.3); Red Blood Cell Count 3.23 M/mm3 (4.30-5.90); White Blood Cell Count 12.41 K/mm3 (4.00-11.30)
[2024-04-06 04:49] LABS: International Normalized Ratio 1.11; Prothrombin Time Results 11.8 Sec (9.7-11.5)
[2024-04-06 04:56] LABS: Albumin, Blood 1.6 g/dL (3.4-5.0); Albumin/Globulin Ratio 0.4 (0.8-1.8); Bilirubin, Total 2.3 mg/dL (0.1-1.0); Bun/Creatinine Ratio 33.9 (12.0-20.0); Calcium, Blood 7.9 mg/dL (8.5-10.1); Creatinine, Blood 1.18 mg/dL (0.60-1.20); Globulin, Blood 4.1 g/dL (2.2-4.0); Phosphorus, Blood 4.2 mg/dL (2.5-4.9); Potassium, Blood 3.6 mmol/L (3.5-5.5); Total Protein, Blood 5.7 g/dL (6.4-8.2)
--- NOTE | 2024-04-06 05:20 | NUR ---
SHIFT SUMMARY: NO ACUTE CHANGES, SEE ASSUMED CARE NOTE. VSS STABLE. MAP>65 LEVOPHED REMAINS ON SB. PT MEDICATED PER EMAR FOR PAIN AND ETOH WITHDRAWAL. PT REMAINS INTUBATED ON ACVC 18/12/20 RR 18-24 SPO2>95%. TEMP SCHOFIELD TO GRAVITY W/YELLOW OUTPUT. WILL REPORT TO ONCOMING RN.
--- NOTE | 2024-04-06 13:31 | NUR ---
UPDATE PT REMAINS INTUBATED AND SEDATED. GIVEN SED [place] AND SBT, BECAME QUITE TACHYPNEIC, THRASHING HEAD SIDE TO SIDE BUT ABLE TO SQUEEZE HANDS & WIGGLE TOES. PRN FENTANYL AND PROPOFOL RESTARTED, WILL TRANSITION TO PRECEDEX. REMAINS ON SIMV, SEE RT CHARTING FOR SETTINGS. TPN INFUSIN JANIS PICC, TRANSITIONING TO TF THIS AFTERNOON. AMIODARONE GTT CONTINUES, 1ST DEGREE HB ON THE JUVENILE DETENTION OFFICER, HR IN THE 60'S. SCHOFIELD CATH DRAINING GREENISH TINT URINE. NO BM.
--- NOTE | 2024-04-06 14:27 | NUR ---
Case Conference: Spoke with pt's daughter Edith. She is aware of pt's current condition, and identifies herself as his only adult child. We discussed the pt's medical course up until this point, including the pt's code status being "Full Code." She chose to change the pt's code status to DNR at this time. She was tearful on the phone, but because of our phone call has decided to come and see him in the next few days. She states she lives in [place], [place] and that it may take her a day or 2 to make arrangements to visit. Received order for DNR from hospitalist, and updated bedside RN.
--- NOTE | 2024-04-06 14:49 | NUR ---
Received return phone call from Edith, who now states she isn't pt's "actual" daughter. She states her mom and the patient were in a relationship for some time, and while she considers him her father, she was never legally adopted by him, nor are they related by law. I thanked her for clarifying, and explained the importance of making that distinction when it comes to legal issues, she v/u. Notified physician and bedside RN, and changed code status back to Full Code.
[2024-04-06] MEDS ORDERED: Parenteral Electolytes 40 ML,Potassium Phosphate Dibasic 30 MM,Multivitamins 10 ML,Thia... IV SCH (17:00)
--- NOTE | 2024-04-06 18:05 | NUR ---
SHIFT SUMMARY PT INTUBATED AND SEDATED, REMAIN ON SIMV-RATE 8, TV 450, 30%, PS 10, PEEP-5 c SATS >90%. TRANSITIONED FROM PROPOFOL TO PRECEDEX, CURRENTLY ON 0.7 c RASS OF -2. GIVING PRN FENTANYL WELL FOR ADJUNCT SEDATION. WHEN OFF SEDATION PT BECOMES QUITE ANXIOUS, RR TO THE 40'-50'S, THRASHES IN BED. WILL BRIEFLY FOLLOW COMMANDS BUT DIFFICULT TO REDIRECT. OGT REMAINS TO LIS, PLAN ON TRANSITIONING TO TUBE FEEDS TOMORROW. PPN INFUSING AT PRESCRIBED RATE. TEMP PROBE SCHOFIELD PATENT, DRAINING GREEN/ YELLOW URINE. NO BM.
[2024-04-06 19:47] LABS: Vancomycin, Trough 20.1 ug/mL (5.0-10.0)
[2024-04-06] MEDS ORDERED: Furosemide 10 MG / ML 2ML Vial IV SCH (21:00)
[2024-04-06] MEDS ORDERED: Metolazone 5 MG Tab PO SCH (21:00)
[2024-04-06] MEDS ORDERED: Potassium Chloride 20 MEQ/15 ML UDC PO SCH (21:00)
--- NOTE | 2024-04-06 22:04 | NUR ---
ASSUMED CARE: PT ALERT TO VERBAL STIMULI, AGITATED AND THRASHING HEAD BACK AND FORTH WITH ALL CARE, WELL FIGHTING VENT. MEDICATED PER EMAR FOR PT COMFORT. VENT SIMV, SEE RT DOCUMENTATION FOR SETTINGS. SPO2>95%, RR 11-18. VSS MAP>65. PT IN SR HR 60s. TEMP SCHOFIELD DRAINING YELLOW URINE TO GRAVITY. WILL UPDATE NEEDED.
[2024-04-07] VITALS (66 sets, daily range): BP systolic 78–149; BP diastolic 51–112
[2024-04-07] MEDS ORDERED: Vancomycin HCL 750 MG in NS 250 ML IV SCH (01:00)
[2024-04-07 04:46] LABS: Calcium, Blood 8.4 mg/dL (8.5-10.1); Creatinine, Blood 1.03 mg/dL (0.60-1.20); Magnesium, Blood 1.6 mg/dL (1.6-2.4); Phosphorus, Blood 3.8 mg/dL (2.5-4.9); Potassium, Blood 4.5 mmol/L (3.5-5.5)
[2024-04-07] MEDS ORDERED: Magnesium Sulf 2 GM/Water 50ML 50 ML IV ONE (05:11)
--- NOTE | 2024-04-07 05:23 | NUR ---
SHIFT SUMMARY: PT CONTINUES TO BE AGITATED, THRASHING HEAD BACK AND FORTH, KICKING AND HITTING THE SIDE RAILS WITH ANY CARE OR STIMULI. MEDICATED T/O THE NIGHT PER EMAR. VSS STABLE MAP>65, SINUS ROGER W/1ST DEGREE HB, HR 58-60s. PT VENT SIMV, SEE RT NOTE FOR SETTINGS. PRECEDEX GTT INFUSING AT 0.9 MCG/KG/HR, PPN GTT AT 100 ML/HR. SCHOFIELD CATH DRAINING YELLOW URINE TO GRAVITY W/GOOD OUTPUT THIS SHIFT. WILL REPORT TO ONCOMING RN.
[2024-04-07] MEDS ORDERED: Sodium Phosphate 30 MM in Dextrose 5% 500 ML IV ONE (05:30)
--- NOTE | 2024-04-07 12:55 | NUR ---
UPDATE ASSUMED CARE OF PT @ 0700. PT INITIALLY INTUBATED-SIMV AND SEDATED WITH PRECEDEX. SBT AND SED [place] FROM [id number], PT DID FAIRLY WELL BUT BECOMES EXTREMELY AGITATED WITH ANY STIMULATION. MEDICATED WITH PRN FENTANYL DURING THAT TIME WHICH MILDLY HELPED. PT NOW BACK ON SIMV AND SEDATED WITH PRECEDEX AND PROPOFOL. PRECEDEX WAS MAXED OUT 1.4MCG/KG/HR AND PT STILL THRASHING IN BED. CURRENTLY PRECEDEX @ 0.7MCG/KG/HR AND PROPOFOL @ 10MCG/KG/MIN WITH A RASS OF -2. OGT TO LIS, AWAITING ORDERS FOR TF. TEMP PROBE SCHOFIELD PATENT, AFEBRILE, DRAINING LIGHT YELLOW URINE.
[2024-04-07] MEDS ORDERED: Potassium Chloride 20 MEQ/15 ML UDC PT ONE (15:00)
[2024-04-07] MEDS ORDERED: Bisacodyl 10 MG Supp PR PRN (15:20)
[2024-04-07] MEDS ORDERED: Magnesium Hydroxide Conc 10 ML UDC PT PRN (15:20)
[2024-04-07] MEDS ORDERED: Docusate Sodium 100 MG UDC PT PRN (15:20)
--- NOTE | 2024-04-07 18:12 | NUR ---
SHIFT SUMMARY PT REMAINS INTUBATED & SEDATED WITH PROPOFOL @ 20MCG/KG/MIN & PRECEDEX @ 0.7MCG/KG/HR c A RASS OF -2 TO +1, PT VERY SENSITIVE TO STIMULATION. CONTINUES TO THRASH WITH STIMULI, DIFFICULT TO FIND APPROPRIATE LEVEL OF SEDATION. GRABBED ETT TODAY WITHOUT SUCCESSFUL EXTUBATION. OGT c TF @ 25ML/HR. TEMP PROBE SCHOFIELD DRAINING LIGHT YELLOW URINE, 3900ML OF URINE OUT TODAY. NO BM TODAY. MONITORING PT CLOSELY.
--- NOTE | 2024-04-07 18:39 | NUR ---
FAMILY UPDATE THIS RN CONTACTED BIGG TO DISCUSS PLAN OF CARE. BIGG STATED "I'M NOT HIS DAUGHTER BY BLOOD, MY MOM DATED HIM BUT HE IS MY DAD IF YOU KNOW WHAT I MEAN". SHE ADMITS TO BEING HIS ONLY FAMILY CONTACT AND STATED SHE WILL TRY TO COME UP FROM [place] TOMORROW MORNING FOR POTENTIAL EXTUBATION. THIS RN REQUESTED HER TO CALL IF SHE DOES NOT PLAN ON COMING UP.
--- NOTE | 2024-04-07 20:33 | NUR ---
ASSUMED CARE: PT INTUBATED, AGITATED AND THRASHING HEAD BACK AND FORTH, FIGHTING THE VENT AND PULLING AT RESTRAINTS W/ ANY STIMULI AND CARE. PT ON SIMV VENT SETTINGS, SEE RT DOCUMENTATION FOR DETAILS. VSS STABLE, SINUS RYTHM W/1ST DEGREE HB, HR 60s-70s. PRECEDEX GTT AT 0.5 MCG/KG/HR, PROPOFOL AT 15 MCG/KG/MIN, TUBE FEED AT 25 ML/HR. TEMP SCHOFIELD DRAINING DARK YELLOW URINE TO GRAVITY. WILL UPDATE NEEDED.
--- NOTE | 2024-04-07 23:26 | NUR ---
UPDATE DIFFICULT TO MAINTAIN RASS 0 TO -2. AT TIMES RASS +3. PRECEDEX AND PROPOFOL GTT INFUSING. SEE FLOWSHEET FOR TITRATIONS. APPROX 2300 PT RR 40-60, THRASHING HEAD AND PULLING GOWN DOWN WITH HANDS. PT NOT FOLLOWING DIRECTIONS OR RESPONDING TO QUESTIONS. PROPOFOL INCREASED FOR VENT COMPLIANCE. PT MAINTAINED RR 40-60'S AND 25MCG OF FENTANYL GIVEN. PT BEGAN TO CALM AND RR 20'S. SHORTLY AFTER VENT ALARMING FOR LOW MINUTE VENTILATION AND PT NOT BREATHING OVER VENT RATE OF 8. RT CALLED AND SETTINGS CHANGED. SEE RT CHARTING FOR SETTINGS. PT NOW CALM, RR 12-18, TV 400'S.
[2024-04-08] VITALS (56 sets, daily range): BP systolic 73–151; BP diastolic 55–108
[2024-04-08 04:09] LABS: Hematocrit 29.8 % (37.0-53.0); Mean Corpuscular HGB 29.8 pg (26.0-34.0); Mean Corpuscular HGB Conc 33.6 g/dL (31.5-36.5); Mean Corpuscular Volume 89 fL (80-100); Mean Platelet Volume 9.5 fL (9.1-12.4); Platelet Count 285 K/mm3 (150-400); RDW Coefficient Variation 13.4 % (11.7-14.2); Red Blood Cell Count 3.36 M/mm3 (4.30-5.90); White Blood Cell Count 12.03 K/mm3 (4.00-11.30)
[2024-04-08 04:36] LABS: BAND PERCENT MAN 3 % (0-8); BASOPHILS PERCENT MAN 0 % (0-2); EOSINOPHILS ABSOLUTE MAN 0.24 K/mm3 (0.00-0.68); EOSINOPHILS PERCENT MAN 2 % (0-6); LYMPHOCYTES ABSOLUTE MAN 1.68 K/mm3 (0.84-5.20); LYMPHOCYTES PERCENT MAN 14 % (21-46); METAMYELOCYTE ABSOLUTE MAN 0.12 K/mm3 (0.00-0.00); METAMYELOCYTE PERCENT MAN 1 % (0-0); MONOCYTES PERCENT MAN 5 % (4-13); MYELOCYTE ABSOLUTE MAN 0.36 K/mm3 (0.00-0.00); MYELOCYTE PERCENT MAN 3 % (0-0); NEUTROPHILS ABSOLUTE MAN 9.02 K/mm3 (1.96-9.15); SEG NEUTROPHILS PERCENT MAN 72 % (41-73); TOTAL CELLS COUNTED 100
[2024-04-08 04:42] LABS: Albumin, Blood 1.7 g/dL (3.4-5.0); Albumin/Globulin Ratio 0.4 (0.8-1.8); Bilirubin, Direct 1.6 mg/dL (0.0-0.3); Bilirubin, Indirect 0.3 mg/dL (0.1-0.7); Bilirubin, Total 1.9 mg/dL (0.1-1.0); Bun/Creatinine Ratio 33.1 (12.0-20.0); Calcium, Blood 8.7 mg/dL (8.5-10.1); Creatinine, Blood 1.21 mg/dL (0.60-1.20); Globulin, Blood 4.6 g/dL (2.2-4.0); Phosphorus, Blood 5.3 mg/dL (2.5-4.9); Potassium, Blood 3.6 mmol/L (3.5-5.5); Total Protein, Blood 6.3 g/dL (6.4-8.2)
[2024-04-08 04:46] LABS: Magnesium, Blood 1.8 mg/dL (1.6-2.4)
--- NOTE | 2024-04-08 06:16 | NUR ---
SHIFT SUMMARY: PT AGITATED W/CARE AND STIMULI, SHAKING HEAD BACK AND FORTH, PULLING AT GOWN AND RESTRAINTS, SEDATION TITRATED FOR VENT COMPLIANCE, RASS -3 TO +3 , VERY HARD TO FIND A MEDIUM IN PT COMFORT. BP SOFT, MAP>65. VENT AT SIMVC 06/27/30 SPO2>90%. PROPOFOL GTT INFUSING AT 20 MCG/KG/MIN, PRECEDEX AT 0.5 MCG/KG/HR. TUBE FEED AT 35 ML/HR TO BE INCREASED AT 0900. TEMP SCHOFIELD DRAINING DARK YELLOW URINE TO GRAVITY. WILL REPORT TO ONCOMING RN.
[2024-04-08] MEDS ORDERED: Potassium Chloride 20 MEQ/15 ML UDC PO ONE (08:55)
--- NOTE | 2024-04-08 10:50 | NUR ---
UPDATE PT EXTUBATED TO 11LPM O2 VIA NC, NOW ON 6LPM c SATS >90%, RR IN THE 30-40'S. SOON PT ABLE TO SPEAK PT STATES "DO NOT RESUSCITATE", REPEATS THIS MULTIPLE TIMES. THIS RN EXPLAINS WHAT THAT MEANS. PT RESPONDS WITH ", I WANT TO ". PT ALERT TO PERSON, PLACE, YEAR, AND FAMILY NAMES. FOLLOWING COMMANDS. ALSO STATES "TAKE ALL OF THIS OFF, I WANT TO ". PALLIATIVE CARE AND DR REILLY AWARE. PT ALSO STATES, "TELL PUSHPA EVERYTHING I HAVE IS HERS".
[2024-04-08] MEDS ORDERED: LORazepam 2 MG/ML 1ML Injection IV PRN ×2 (11:40→15:15)
[2024-04-08] MEDS ORDERED: Atropine Sulfate 1% Opth Soln 2ML BTL SL PRN (11:40)
[2024-04-08] MEDS ORDERED: LORazepam 1 MG Tab PO PRN (11:40)
[2024-04-08] MEDS ORDERED: Morphine Sulfate 20 MG/1ML 1 ML Oral Syringe SL PRN (11:40)
[2024-04-08] MEDS ORDERED: Scopolamine Hydrobromide Patch TOP PRN (11:40)
[2024-04-08] MEDS ORDERED: Morphine Sulfate 10 MG/ML 1MLSYR IV PRN (11:40)
--- NOTE | 2024-04-08 11:41 | NUR ---
UPDATE THIS RN CONTACTED PUSHPA (DAUGHTER) WITH PTS PHONE. PUSHPA UPDATED BY THIS RN AND DR. REILLY OF PTS WISHES TO BE COMFORT CARE. PT NOW COMFORT CARE. CURRENTLY PT TACHYPNEIC, RR IN THE 30-40'S, HAVING DIFFICULTY CLEARING SECRETIONS. AWAITING MEDS.
--- NOTE | 2024-04-08 12:06 | NUR ---
Met with pt this am after extubation. He is alert and oriented. He told his primary RN he doesn't want to go back on the ventilator. He also stated this to Palliative Care, along with his desire to be comfortable. He stated he doesn't want to be "kept alive by machine." I explained what comfort care is to him, and he replied, "Yes, that's what I want. I'm tired. I'm sick. Just make me more comfortable and let me go." Orders placed, and pt now on comfort care. Bedside RN aware, along with pt's daughter Janice who just arrived.
[2024-04-08] MEDS ORDERED: OxyCODONE HCL 5 MG TAB PO PRN (13:40)
[2024-04-08] MEDS ORDERED: HYDROmorphone HCl/Pf 1MG SYR IV PRN (13:45)
[2024-04-08] MEDS ORDERED: HyDROXyzine HCl 25 MG Tab PO PRN (15:05)
[2024-04-08] MEDS ORDERED: Piperacillin/Tazobactam Sod 4.5 GM in NS 100 ML IV SCH (16:00)
--- NOTE | 2024-04-08 18:16 | NUR ---
SHIFT SUMMARY PT REMAINS A&OX3, FOLLOWING COMMANDS BUT ANGRY AT BASELINE. VERY DEMANDING FOR REQUESTS, REMAINS WEAK BUT ATTEMPTING TO USE SUCTION SWAB NEEDED. USING CALL LIGHT, ANGRILY HITTING IT ON BED THIS AFTERNOON DUE TO WANTING "FLAVORED WATER". LSCTA, ON 6LPM VIA NC c SATS >90%. SCHOFIELD CATH REMAINS PATENT, DRAINING YELLOW URINE. HAVING MULTIPLE LOOSE BM'S.
--- NOTE | 2024-04-08 20:00 | NUR ---
ASSUMPTION OF CARE: THIS RN ASSUMED CARE OF PT AT APPROX 1915. PT ALERT, ORIENTED X2-3. STATES HE IS IN [place] & THE YEAR IS 1979. ANXIOUS THIS PM, FREQUENTLY YELLING "WATER" AND "TAKE ME HOME." THIS RN HAS ATTEMPTED TO PROVIDE EDUCATION & REDIRECTION, PT IS NOT RECEPTIVE OR REDIRECTABLE AT THIS TIME. MEDICATED PER EMAR FOR ANXIETY. VSS. HR 70-80'S, SINUS RHYTHM W/ 1ST DEG HB ON MONITOR. BP STABLE, MAP >65. SPO2 >90% ON 7L AT START OF SHIFT. TITRATED DOWN TO 5L W/ SPO2 MAINTAINING >90%. AFEBRILE. SCHOFIELD CATH IN PLACE, PATENT & DRAINING YELLOW URINE TO GRAVITY. ORAL CARE TO SUCTION. PT IS REFUSING REPOSITIONING IN BED. DENIES PAIN AT THIS TIME. NO OTHER NEEDS AT THIS TIME. CALL LIGHT IN REACH.
--- NOTE | 2024-04-08 23:00 | NUR ---
THIS RN TRIALED ICE CHIPS W/ PT. PT BEGAN COUGHING & APPEARED UNABLE TO CLEAR SECRETIONS. PT REFUSED TO BE SUCTIONED. PT EDUCATED THAT HE WILL BE STRICT NPO PENDING SPEECH EVAL. ORAL CARE TO SUCTION & MOUTH MOISTURIZER PROVIDED.
[2024-04-09] VITALS: BP 147/90
[2024-04-09 03:28] LABS: BASOPHILS ABSOLUTE AUTO 0.07 K/mm3 (0.00-0.23); BASOPHILS PERCENT AUTO 1 % (0-2); EOSINOPHILS ABSOLUTE AUTO 0.12 K/mm3 (0.00-0.68); EOSINOPHILS PERCENT AUTO 1 % (0-6); Hematocrit 30.6 % (37.0-53.0); Hemoglobin 10.4 g/dL (13.5-17.5); IMMATURE GRAN ABSOLUTE AUTO 0.58 K/mm3 (0.00-0.10); IMMATURE GRAN PERCENT AUTO 5 % (0-1); LYMPHOCYTES ABSOLUTE AUTO 1.14 K/mm3 (0.84-5.20); LYMPHOCYTES PERCENT AUTO 10 % (21-46); MONOCYTES ABSOLUTE AUTO 0.68 K/mm3 (0.16-1.47); MONOCYTES PERCENT AUTO 6 % (4-13); Mean Corpuscular HGB 30.1 pg (26.0-34.0); Mean Corpuscular Volume 88 fL (80-100); Mean Platelet Volume 8.9 fL (9.1-12.4); NEUTROPHILS ABSOLUTE AUTO 9.18 K/mm3 (1.96-9.15); NEUTROPHILS PERCENT AUTO 78 % (41-73); Platelet Count 328 K/mm3 (150-400); RDW Coefficient Variation 13.8 % (11.7-14.2); RDW Standard Deviation 43.6 fL (35.1-46.3); Red Blood Cell Count 3.46 M/mm3 (4.30-5.90); White Blood Cell Count 11.77 K/mm3 (4.00-11.30)
[2024-04-09 03:30] VITALS: BP 119/72
[2024-04-09 03:47] LABS: Albumin, Blood 1.9 g/dL (3.4-5.0); Albumin/Globulin Ratio 0.4 (0.8-1.8); Bilirubin, Total 2.3 mg/dL (0.1-1.0); Bun/Creatinine Ratio 29.9 (12.0-20.0); Calcium, Blood 8.2 mg/dL (8.5-10.1); Creatinine, Blood 1.34 mg/dL (0.60-1.20); Globulin, Blood 5.1 g/dL (2.2-4.0); Potassium, Blood 3.5 mmol/L (3.5-5.5)
--- NOTE | 2024-04-09 05:27 | NUR ---
END OF SHIFT NOTE: PT WAS VERY AGITATED MID-SHIFT, STATING HE WAS "GOING HOME" WITH HIS FRIEND ANUPAM. HE BEGAN REMOVING CARDIAC MONITORING, SPO2 SENSOR, AND GOWN. THIS RN ATTEMPTED TO REDIRECT PT, PT CONTINUED TO STATE THAT HE WAS LEAVING. THIS RN & MODELING DIRECTOR SPOKE W/ FAMILY, FAMILY AGREEABLE TO PT STAYING OVERNIGHT. PT BEGAN COMPLAINING OF PAIN "ALL OVER"; MEDICATED PT FOR PAIN & ANXIETY PER EMAR THIS SHIFT W/ SIGNIFICANT IMPROVEMENT. PT ABLE TO SLEEP IN 1-2HR INCREMENTS & IS NO LONGER ADAMENT ABOUT LEAVING THE HOSPITAL. VSS OVERNIGHT. HR 70-80'S, SINUS W/ 1ST DEG HB ON MONITOR. BP STABLE, MAP >65. SPO2 >90%, TITRATED DOWN TO 2L VIA NC THIS AM. SCHOFIELD CATH IN PLACE, PATENT & DRAINING YELLOW URINE TO GRAVITY. NO BM'S OVERNIGHT. DECLINED MOST REPOSITIONS W/ STAFF, ABLE TO REPOSITION INDEPENDENTLY. NO OTHER NEEDS AT THIS TIME, RESTING IN BED. WILL REPORT TO ONCOMING RN.
[2024-04-09] MEDS ORDERED: Enoxaparin 30 MG/0.3 ML SYR SC SCH (09:00)
--- NOTE | 2024-04-09 12:25 | NUR ---
The patient has expressed his wishes to be discharged home today. He states he is willing to be discharged with a hospice consult due to his health issues, including dysphasia. He is currently NPO due to failing his swallow eval. He initially went onto comfort care yesterday, but he changed his mind after seeing 2 of his friends. However, once he was given more information about hospice care, he feels more confident in making that choice. Prior to making hospice arrangements, attempting to make sure the patient has someone available to assist with his care needs. Palliative care team is reaching out to those pt has identified as willing to assist, and left VM messages. No return calls at this time.
[2024-04-09] MEDS ORDERED: D5W-LR 1,000 ML IV SCH (14:30)
--- NOTE | 2024-04-09 15:04 | NUR ---
shift summary; PATIENT IS AN ICU TRANSFER TODAY. HE IS AO X 3 ON ARRIVAL TO MED FLOOR. ORDER FOR D5LR RECEIVED AND STARTED AFTER PATEINT ARRIVES TO MED FLOOR. DILAUDID 1MG IV ADMIN FOR PAIN. PATIENT HS LARGE BLACK TARRY STOOL NOTED ON ARRIVAL. HE IS CURRENLTLY ON PHONE ASKING A FRIEND TO TAKE HIM HOME.
[2024-04-09 15:57] VITALS: BP 169/84
--- NOTE | 2024-04-09 18:31 | NUR ---
SHIFT SUMMARY; PATIENT FROM THE ER LATE THIS AFTERNOON.. HE IS AO X 4 ON ARRIVAL. PRBC X 1 UNIT INFUSING ON ARRIVAL. PAITENT IN STREET CLOTHES. DECISION TO NOT DRESS OUT IN HOSPITAL GOWN UNTIL AFTER BLOOD DONE INFUSING. VITAL SIGNS ARE STABLE AND WNL. HGB IN ER WAS 6,.7 REPEAT HGB ORDERED WILL BE DONE AFTER BLOOD DONE. PER REPORT PATIENT STARTED HAVING PAIN 1 DAY AGO. FELT LIKE IT WAS THE SAME PAIN WHEN HE REQUIRED STENTS. HE CAME TO ER TODAY AFTER HE STARTED VOMITTING. PER PAIENT IT WAS BLOODY. NO EMESIS SINCE ARRIVAL TO MED FLOOR. HIS LUNGS ARE CLEAR AND NO SKIN ISSUES ARE NOTED. WILL REMAIN AVAILABLE FOR THIS PATIENT UNTIL REPORT AND HAND OFF TO NOC SHIFT RN.
[2024-04-09 19:27] VITALS: BP 160/76
[2024-04-09] MEDS ORDERED: QUEtiapine Fumarate 50 MG TAB PO PRN (23:50)
--- NOTE | 2024-04-10 00:15 | NUR ---
DR SOUZA REQUESTED WE CALL AND GIVE THE PT'S FAMILY AN UPDATE RE THE PATIENT AGITATED ENOUGH ABOUT EATING WHILE NPO R/T TO FAILING HIS SWALLOW EVAL THAT HE WAS WANTING TO LEAVE AMA AND THAT AT THIS TIME CONSIDERING HIS PLAN FOR HOME WITH HOSPICE WE ARE GOING TO LET HIME EAT WHATEVER IS SAFEST FOR HIM TO EAT WHEN HE BECOMES HIGHLY AGITATED RE BEING NPO. CALLED PT'S BROTHER LISTED HIS NEXT OF KIN, NO ANSWER AT THIS TIME, CALLED PT'S DAUGHTER LISTED IN THE PHYSICIST SOLID EARTH NOTES, NO ANSWER. MESSAGE LEFT REQUESTED A CALL BACK TO UPDATE THEM AND ASK SOME QUESTIONS.
[2024-04-10 02:17] VITALS: BP 161/84
--- NOTE | 2024-04-10 06:12 | NUR ---
SHIFT SUMMARY PT IS A&O X2-3, CONFUSED, SLURRED SPEECH. PT PULLED OUT HIS IV AND PICC LINE DURING THIS SHIFT. PT SOILED THE BED WITH FECES. . PT INSISTING FOR THIS CAR RIDER TO CALL THE [facility] AND LEAVE (UNKNOWN WHERE.) RECYCLING COORDINATOR PHONED AND LVM TO PT'S BROTHER AND DAUGHTER WHO ARE BOTH ENSTRANGED FROM THE PT. PT CONTINUES AGITATED AND C/O ANXIETY.PT SHUFFLING ITEMS/DENTURES/CELL PHONE, AND DROPPING ITEMS ON THE FLOOR. PT SITTING ON THE SIDE OF THE BED. BED ALARM FOR SAFETY. ABLE TO INFUSE IV ABX DURING THIS SHIFT. HYDROXYZINE 50MG ADMINISTERED X2 DURING THIS SHIFT. NOT EFFECTIVE. SEROQUEL 50MG PO PRN NOT EFFECTIVE, ADMINISTERED X1 DURING THIS SHIFT. PT IS NPO, D/T ASPIRATION PRECAUTIONS R/T RECENT INTUBATION (PER PREVIOUS PROVIDER'S NOTES). PT ASKING H20& ICE CHIPS T/O THIS SHIFT. THIS CAR RIDER CALLED DR. DORADO ON-CALL HOSPITALIST. PT REPEATING HIMSELF TO THIS CAR RIDER TO FIND A PHONE NUMBER TO A [facility] AND A [facility]. PT REQUESTING BREAKFAST/FOOD. CONTINUING NPO PER PROVIDER'S ORDERS. RESIDENT BY THE BEDSIDE. RESIDENT DISCUSSED WITH THE PT AND EVALUATED SWALLOWING, AND ORIENTATION (PER RESIDENT A&O X4.) RESIDENT IN CONTACT WITH . SUGGESTED IV ATIVAN, NO IV ACCESS OF 635 DURING THIS SHIFT. NO NEW ORDERS. RECYCLING COORDINATOR NURSE STEVE NOTIFIED. BED AT THE LOWEST POSITION, CALL LIGHT WITHIN REACH. PT IS ABLE TO MAKE HIS NEEDS KNOWN, BUT CONFUSED AND A&O X2-3 WHEN THIS CAR RIDER BY THE BEDSIDE.
[2024-04-10 06:33] LABS: BASOPHILS ABSOLUTE AUTO 0.05 K/mm3 (0.00-0.23); BASOPHILS PERCENT AUTO 1 % (0-2); EOSINOPHILS ABSOLUTE AUTO 0.09 K/mm3 (0.00-0.68); EOSINOPHILS PERCENT AUTO 1 % (0-6); Hematocrit 31.5 % (37.0-53.0); Hemoglobin 10.7 g/dL (13.5-17.5); IMMATURE GRAN ABSOLUTE AUTO 0.21 K/mm3 (0.00-0.10); IMMATURE GRAN PERCENT AUTO 2 % (0-1); LYMPHOCYTES ABSOLUTE AUTO 0.77 K/mm3 (0.84-5.20); LYMPHOCYTES PERCENT AUTO 9 % (21-46); MONOCYTES ABSOLUTE AUTO 0.56 K/mm3 (0.16-1.47); MONOCYTES PERCENT AUTO 6 % (4-13); Mean Corpuscular HGB 30.5 pg (26.0-34.0); Mean Corpuscular Volume 90 fL (80-100); Mean Platelet Volume 9.1 fL (9.1-12.4); NEUTROPHILS ABSOLUTE AUTO 7.01 K/mm3 (1.96-9.15); NEUTROPHILS PERCENT AUTO 81 % (41-73); Platelet Count 238 K/mm3 (150-400); RDW Coefficient Variation 13.7 % (11.7-14.2); RDW Standard Deviation 44.3 fL (35.1-46.3); Red Blood Cell Count 3.51 M/mm3 (4.30-5.90); White Blood Cell Count 8.69 K/mm3 (4.00-11.30)
[2024-04-10 06:56] LABS: Albumin, Blood 1.9 g/dL (3.4-5.0); Albumin/Globulin Ratio 0.4 (0.8-1.8); Bilirubin, Total 2.5 mg/dL (0.1-1.0); Bun/Creatinine Ratio 23.2 (12.0-20.0); Calcium, Blood 8.4 mg/dL (8.5-10.1); Creatinine, Blood 1.12 mg/dL (0.60-1.20); Globulin, Blood 4.7 g/dL (2.2-4.0); Potassium, Blood 3.3 mmol/L (3.5-5.5); Total Protein, Blood 6.6 g/dL (6.4-8.2)
[2024-04-10] MEDS ORDERED: D5W-LR 1,000 ML IV SCH ×2 (07:00→08:35)
[2024-04-10 07:51] VITALS: BP 150/88
[2024-04-10] MEDS ORDERED: Potassium Chloride 20 MEQ TabCR PO ONE (08:00)
[2024-04-10 16:33] VITALS: BP 145/101
--- NOTE | 2024-04-10 17:19 | NUR ---
SHIFT SUMMARY PT AWAKE AT START OF SHIFT, WANTING SOMETHING TO DRINK. DR TOBAR IN TO SEE PT AND DISCUSS PLAN OF CARE. PT TO GO HOME ON HOSPICE WHEN ARRANGEMENTS COMPLETE. TABLE TENDER AND PALLIATIVE CARE TO MEET WITH PT WHEN BOTH AVAILABLE. PT ABLE TO EAT AND DRINK NOW; TOLERATING SOFT DIET WELL. PT CONTINUES TO BE INCONTINENT OF BOWELS. BED BATH'S AND LINEN CHANGES DONE THRU OUT THE DAY. PT HAS BEEN PLEASANT AND CO-OP WITH CARE TODAY, NOW THAT HE IS ABLE TO EAT AND HOPING TO GO HOME. NO C/O. CALL LT IN REACH. BED ALARM ON FOR SAFETY.
[2024-04-10 19:28] VITALS: BP 150/79
--- NOTE | 2024-04-10 19:45 | NUR ---
PATIENT CALLED [employer] TO WEB SITE MANAGER PATIENT IN THE ER. THIS RN TALKED WITH PATIENT-PATIENT WANTS TO LEAVE, ASKED PATIENT HOW HE WAS PLANNING ON LEAVING-PATIENT RESPONED "WITH A WHEEL CHAIR OR I WILL WALK", DISCUSSED WITH PATIENT THAT HE HAS NOT BEEN AMBULATING AND HE IS AT RISK OF FALLING AND THAT [facility] DOES NOT HAVE SELF PROPELLED WHEELCHAIRS AND IF HE CHOOSES TO LEAVE AMA HE WOULD NEED TO BE ABLE TO TRANSFER HIMSELF TO THE ER AND CAB WITHOUT HELP FROM STAFF. THIS RN LET PATIENT KNOW THAT IF HE CAN GET A FRIEND TO MOVE HIS TRAILER THAT WILL AID IN HIS DISCHARGE HE NEEDS TO HAVE A SAFE PLACE TO DISCHARGE TO.
[2024-04-11 03:37] VITALS: BP 162/91
--- NOTE | 2024-04-11 05:35 | NUR ---
SHIFT SUMMARY. PATIENT A&OX2-3. PATIENT WANTING TO LEAVE AT THE BEGINNING OF SHIFT-SEE PREVIOUS NOTE. PATIENT PLEASANT AND COOPERATIVE WITH CARE LATER ON IN THE SHIFT. PATIENT HAD SNACKS X2. PATIENT ASKING WHEN THE DOCTOR COMES IN-LET PATIENT KNOW THAT THE DOCTOR COMES IN IN THE MORING AROUND 9AM BUT IT COULD BE LATER OR EARLIER. PATIENT C/O PAIN X1-MEDICATED WITH OXYCODONE X1. PATIENT RESTED OFF AND ON T/O NIGHT. PATIENT HAS PLANS TO DISCHARGE HOME ON HOSPICE-TRAVEL TRAILER TO BE MOVED TO [facility]. PATIENT IS ANXIOUS TO LEAVE. PATIENT HAS HAD LOOSE STOOL THIS SHIFT X2. INCONTINENT OF BOWEL. CATHETER IN PLACE, DRAINING TO GRAVITY. BED IS LOCKED IN THE LOWEST POSITION c CALL LIGHT IN REACH. CARE IS ONGOING.
[2024-04-11 07:44] VITALS: BP 140/60
[2024-04-11] MEDS ORDERED: Thiamine HCl 100 MG Tab PO SCH (09:00)
--- NOTE | 2024-04-11 14:14 | NUR ---
PT DISCHARGE THE PT CALLED FOR ASSISTANCE, UPON ENTERING HIS ROOM IT WAS NOTICED THAT HE WAS DRESSING, HIS PANTS WERE PULLED ABOVE HIS KNEES AND HE WAS DEMANDING THAT HE HIS URINARY CATHETER BE REMOVED NOW, SO THAT HE COULD LEAVE. THE PT WAS REMINDED THAT CARE MANAGMENT WAS ARRANGING A RIDE HOME FOR HIM, HOWEVER, HE DECLINED THE RIDE AND STATED THAT HE WAS LEAVING AND WOULD CALL FOR A TAXI HIMSELF. DISCHARGE INSTRUCTIONS WERE GIVEN. THE PT WAS ASKED TO STAY UNTIL HIS RIDE WAS ESTABLISHED, HE CHOSE TO LEAVE UNASSISTED
--- NOTE | 2024-04-12 14:02 | NUR ---
Last evening, [facility] stated they would admit this pt to services upon discharge. However, when this RN attempted to introduce the [facility] nurse to the patient, discovered he had been discharged home. Unable to reach the patient by phone, as the phone number on face sheet is incorrect. [facility] state they will attempt to contace the patient.
== END 2024-04-11 14:11 | disposition home health service (06) | DRG 871 ==
LOC: ER 22:15 → ERHOLD 22:16 → ICUE 22:16 → MEDS 04-09 11:51 → ENPENDDIS 04-11 13:07 → MEDS 04-11 14:11
PROVIDERS: Emergency Medicine; Family Medicine Adult Medicine; Internal Medicine; Internal Medicine Critical Care Medicine; ADMIT Student in an Organized Health Care Education/Training Program
PROC: 3E033XZ Introduction of Vasopressor into Peripheral Vein, Percutaneous Approach (ICD-10-PCS; principal; 2024-04-01)
PROC: 3E03329 Introduction of Other Anti-infective into Peripheral Vein, Percutaneous Approach (ICD-10-PCS; 2024-04-01)
PROC: 5A12012 Performance of Cardiac Output, Single, Manual (ICD-10-PCS; 2024-04-01)
PROC: 0T9B70Z Drainage of Bladder with Drainage Device, Via Natural or Artificial Opening (ICD-10-PCS; 2024-04-01)
PROC: 0DH67UZ Insertion of Feeding Device into Stomach, Via Natural or Artificial Opening (ICD-10-PCS; 2024-04-05)
PROC: 4A133R1 Monitoring of Arterial Saturation, Peripheral, Percutaneous Approach (ICD-10-PCS; 2024-04-05)
PROC: 3E0336Z Introduction of Nutritional Substance into Peripheral Vein, Percutaneous Approach (ICD-10-PCS; 2024-04-05)
PROC: XW033E5 Introduction of Remdesivir Anti-infective into Peripheral Vein, Percutaneous Approach, New Technology Group 5 (ICD-10-PCS; 2024-04-05)
PROC: 5A1945Z Respiratory Ventilation, 24-96 Consecutive Hours (ICD-10-PCS; 2024-04-05)
PROC: 0BH17EZ Insertion of Endotracheal Airway into Trachea, Via Natural or Artificial Opening (ICD-10-PCS; 2024-04-05)
PROC: 5A09357 Assistance with Respiratory Ventilation, Less than 24 Consecutive Hours, Continuous Positive Airway Pressure (ICD-10-PCS; 2024-04-05)
DX: A41.9 Sepsis, unspecified organism (principal); G92.8 Other toxic encephalopathy; I46.9 Cardiac arrest, cause unspecified; J96.01 Acute respiratory failure with hypoxia; K72.00 Acute and subacute hepatic failure without coma; U07.1 COVID-19; Z66 Do not resuscitate; R57.0 Cardiogenic shock; J18.9 Pneumonia, unspecified organism; G93.1 Anoxic brain damage, not elsewhere classified; F10.139 Alcohol abuse with withdrawal, unspecified; N39.0 Urinary tract infection, site not specified; E87.1 Hypo-osmolality and hyponatremia; K81.0 Acute cholecystitis; E87.21 Acute metabolic acidosis; N17.9 Acute kidney failure, unspecified; J44.0 Chronic obstructive pulmonary disease with (acute) lower respiratory infection; I73.00 Raynaud's syndrome without gangrene; F17.210 Nicotine dependence, cigarettes, uncomplicated; I48.0 Paroxysmal atrial fibrillation; D64.9 Anemia, unspecified; E87.70 Fluid overload, unspecified; R65.20 Severe sepsis without septic shock; B19.20 Unspecified viral hepatitis C without hepatic coma; K74.60 Unspecified cirrhosis of liver; I10 Essential (primary) hypertension; R13.10 Dysphagia, unspecified; M19.90 Unspecified osteoarthritis, unspecified site; M50.30 Other cervical disc degeneration, unspecified cervical region; E86.0 Dehydration; Z98.890 Other specified postprocedural states; Z79.899 Other long term (current) drug therapy; Z79.51 Long term (current) use of inhaled steroids; Z79.82 Long term (current) use of aspirin; Z78.1 Physical restraint status
CPT/HCPCS: 0241U; 31500; 36415; 36600; 51702; 70450; 71045; 71260; 74177; 80048; 80053; 80076; 80202; 80320; 81001; 82140; 82248; 82803; 82947; 83605; 83690; 83735; 83930; 83935; 84100; 84300; 84443; 84478; 84484; 85025; 85610; 85730; 86850; 86900; 86901; 87040; 87070; 87086; 87106; 87205; 92610; 93005; 93010; 93306; 94002; 94003; 94640; 94660; 94664; 94762; 96361; 96374; 96375; 96376; 97162; 97530; 99285-25; A9270; C1751; G0378; J0248; J0282; J0456; J0696; J1170; J1644; J1650; J1940; J2060; J2470; J2543; J2704; J3010; J3370; J3411; J3475; J3480; J7030; J7040; J7050; J7060; J7120; J7121; Q9967

== ENCOUNTER 2024-04-17 02:20 | Emergency (ER) | payer OTHER ==
[~2024-04-17] VITALS: Ht 182.9 cm; Wt 77.1 kg
[2024-04-17 02:48] LABS: BASOPHILS ABSOLUTE AUTO 0.05 K/mm3 (0.00-0.23); BASOPHILS PERCENT AUTO 0 % (0-2); EOSINOPHILS ABSOLUTE AUTO 0.08 K/mm3 (0.00-0.68); EOSINOPHILS PERCENT AUTO 1 % (0-6); Hematocrit 19.9 % (37.0-53.0); Hemoglobin 6.8 g/dL (13.5-17.5); IMMATURE GRAN ABSOLUTE AUTO 0.07 K/mm3 (0.00-0.10); IMMATURE GRAN PERCENT AUTO 1 % (0-1); LYMPHOCYTES ABSOLUTE AUTO 1.59 K/mm3 (0.84-5.20); LYMPHOCYTES PERCENT AUTO 13 % (21-46); MONOCYTES ABSOLUTE AUTO 0.75 K/mm3 (0.16-1.47); MONOCYTES PERCENT AUTO 6 % (4-13); Mean Corpuscular HGB 31.2 pg (26.0-34.0); Mean Corpuscular HGB Conc 34.2 g/dL (31.5-36.5); Mean Corpuscular Volume 91 fL (80-100); Mean Platelet Volume 9.1 fL (9.1-12.4); NEUTROPHILS ABSOLUTE AUTO 9.62 K/mm3 (1.96-9.15); NEUTROPHILS PERCENT AUTO 79 % (41-73); Platelet Count 322 K/mm3 (150-400); RDW Coefficient Variation 14.7 % (11.7-14.2); RDW Standard Deviation 46.7 fL (35.1-46.3); Red Blood Cell Count 2.18 M/mm3 (4.30-5.90); White Blood Cell Count 12.16 K/mm3 (4.00-11.30)
[2024-04-17 03:07] LABS: Albumin, Blood 2.2 g/dL (3.4-5.0); Albumin/Globulin Ratio 0.5 (0.8-1.8); Bilirubin, Total 1.2 mg/dL (0.1-1.0); Bun/Creatinine Ratio 24.5 (12.0-20.0); Calcium, Blood 8.3 mg/dL (8.5-10.1); Creatinine, Blood 0.77 mg/dL (0.60-1.20); Globulin, Blood 4.2 g/dL (2.2-4.0); Potassium, Blood 3.8 mmol/L (3.5-5.5); Total Protein, Blood 6.4 g/dL (6.4-8.2)
[2024-04-17 05:00] VITALS: BP 120/67
[2024-04-17] MEDS ORDERED: RX Prepack Albuterol 1 PREPACK/6.7 GM INH UD ONE (05:00)
== END 2024-04-17 05:19 | disposition home or self-care (01) ==
LOC: ER 02:20
PROVIDERS: Emergency Medicine
DX: D64.9 Anemia, unspecified (principal); J44.9 Chronic obstructive pulmonary disease, unspecified; I10 Essential (primary) hypertension; F17.210 Nicotine dependence, cigarettes, uncomplicated
CPT/HCPCS: 71046; 80053; 83880; 85025; 93005; 93010; 99285-25; A9270

== ENCOUNTER 2024-10-21 16:58 | Observation (INO) | payer OTHER ==
[~2024-10-21] VITALS: Ht 182.9 cm; Wt 85.5 kg
[2024-10-21] MEDS ORDERED: PROAIR RESPICL90 MCG INH (17:19)
[2024-10-21] MEDS ORDERED: MORP20L (17:19)
[2024-10-21] MEDS ORDERED: TRAM50 PO (17:20)
[2024-10-21] MEDS ORDERED: Ipratropium/Albuterol SulF 2.5-0.5MG/3 ML Amp INH ONE (17:45)
[2024-10-21] MEDS ORDERED: OxyCODONE HCL 5 MG TAB PO ONE ×2 (17:50)
[2024-10-21] MEDS ORDERED: Ondansetron 4 MG TAB PO ONE (20:10)
[2024-10-21] MEDS ORDERED: Morphine Sulfate 20 MG/1ML 1 ML Oral Syringe PO ONE (20:10)
[2024-10-21] MEDS ORDERED: Ipratropium Bromide INH 0.02% 0.5 mg/2.5ML Vial INH SCH (20:15)
[2024-10-21] MEDS ORDERED: Albuterol 2.5 MG/3 ML VIAL INH SCH (20:15)
[2024-10-21 21:30] VITALS: BP 133/89
[2024-10-21] MEDS ORDERED: Ondansetron HCl 2 MG / ML 2ML Vial IV PRN (23:10)
[2024-10-21] MEDS ORDERED: FLU VACC TS2024-25(6MOS UP)/PF 45 MCG/0.5 ML SYRINGE IM ONE (23:10)
[2024-10-21] MEDS ORDERED: FentaNYL Citrate 50 MCG/ML 2 ML Injection IV PRN (23:10)
[2024-10-21] MEDS ORDERED: Morphine Sulfate 20 MG/1ML 1 ML Oral Syringe PO PRN (23:15)
[2024-10-21] MEDS ORDERED: Ipratropium/Albuterol SulF 2.5-0.5MG/3 ML Amp INH PRN (23:15)
[2024-10-21] MEDS ORDERED: TraMADol HCl 50 MG Tab PO PRN (23:15)
--- NOTE | 2024-10-22 03:46 | NUR ---
ADMITTED FROM ER. [facility]. PT IS AAOX4, ANGRY AND VERBALLY ABUSIVE TO STAFF, HE DOES NOT WANT TO BE IN THE HOSPITAL. [place]. UPPER DENTURES. AMBULATES WITH CANE. FREQUENTLY HOLLERS FOR HELP AND DOES NOT USE CALL LIGHT. ROXANOL GIVEN FOR DYSPNEA/DISCOMFORT.
--- NOTE | 2024-10-22 13:00 | NUR ---
Upon receiving a referral for spiritual care, I visited the patient. Patient is sitting up in bed and alert. 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 He tells me about his medical problems, his frustrations with the people [place] and his choice to move toward with [facility]. He tells me that he has no quality of life and no one left in his life that he trusts. He is happy only when he is sitting in his trailer drinking beer and smoking pot. We talked about his sources of hope and meaning and reinforced helpful attitudes and perspectives and provided therapeutic listening and gentle drug abuse counselor. The patient responded well and displayed evidence of a greater sense of purpose for living.
--- NOTE | 2024-10-22 14:57 | NUR ---
PT WAS D/C PER MD ORDERS. PT THREW AWAY DC FOLDER PER RECYCLING SPECIALIST UPON WHEELING PT OUT
== END 2024-10-22 14:50 | disposition hospice, home (50) ==
LOC: ER 16:58 → ERHOLD 16:59 → MEDS 16:59 → ENPENDDIS 10-22 11:07 → MEDS 10-22 14:50
PROVIDERS: ADMIT Internal Medicine
DX: J90 Pleural effusion, not elsewhere classified (principal); J44.9 Chronic obstructive pulmonary disease, unspecified; K74.60 Unspecified cirrhosis of liver; I10 Essential (primary) hypertension; F17.210 Nicotine dependence, cigarettes, uncomplicated; Z66 Do not resuscitate
CPT/HCPCS: 71045; 94640; 94644; 94664; 94760; 96374; 96375; 99285-25; A9270; G0378